=== PATIENT | male | born 1940 | race Caucasian/White ===

== ENCOUNTER 2017-05-07 21:31 | Inpatient (IN) | payer MEDICARE, OTHER ==
[~2017-05-07] VITALS: Ht 175.3 cm; Wt 85.3 kg
--- NOTE | 2017-05-07 21:45 | NUR ---
TO BED 6 A 76 YO MALE PATIENT BIBRA FROM [facility] HERE FOR "WBC 26.8; H&H 7.4 AND 26." UPON ARRIVAL TO ER, PATIENT IS ALERT AND RESPONSIVE. VSS. NAD NOTED. AFEBRILE. WITH TRACH TO MEC VENT; RT AT BEDSIDE. KEPT AIRWAY PATENT. COMFORT MEASURES RENDERED.
--- NOTE | 2017-05-07 22:45 | NUR ---
STARTED A SALINE LOCK ON THE LAC G18, BLOOD DRAWN AND CALLED LAB FOR RETAIL AND RESTAURANT ASSOCIATE.
[2017-05-07 22:47] VITALS: BP 154/75
--- NOTE | 2017-05-07 22:50 | NUR ---
PT REC'D TRACHED PORTEX 8 ON NOTED [facility] VENT SETTING GIVEN FROM TRANSPORT RT. PT IS AWAKE AND ALERT. NO RESP DISTRESS NOTED. AMBU BAG BEDSIDE. ALARMS ARE SET AND AUDIBLE. VENT PLUGGED INTO RED OUTLET. WILL CONTINUE TO MONITOR. Addendum: 05/07/17 at 2254 by HAN ALBERTS RT Amended: Links added.
[2017-05-07 23:31] LABS: BASOPHILS # (AUTO) 0.1 /CMM (0.0-0.2); BASOPHILS % (AUTO) 0.3 % (0.0-2.0); EOSINOPHILS # (AUTO) 0.3 /CMM (0.0-0.7); EOSINOPHILS % (AUTO) 0.9 % (0.0-6.0); HEMATOCRIT 25 % (39-51); HEMOGLOBIN 8.3 g/dL (13.5-17.5); LYMPHOCYTES # (AUTO) 1.6 /CMM (0.8-4.8); LYMPHOCYTES % (AUTO) 5.7 % (20.0-44.0); MEAN CORPUSCULAR HEMOGLOBIN 30 PG (26.0-33.0); MEAN CORPUSCULAR HGB CONC 33 g/dl (31.0-36.0); MEAN CORPUSCULAR VOLUME 92 fL (80-96); MONOCYTES # (AUTO) 2.3 /CMM (0.1-1.30); MONOCYTES % (AUTO) 7.9 % (2.0-12.0); NEUTROPHILS # (AUTO) 24.4 /CMM (1.8-8.9); NEUTROPHILS % (AUTO) 85.2 % (43.0-81.0); PLATELET COUNT (AUTO) 591 /CMM (150-450); RDW COEFFICIENT OF VARIATION 16.7 (11.5-15.0); RED BLOOD CELL COUNT(AUTO) 2.74 MIL/uL (4.5-6.0); WHITE BLOOD COUNT (AUTO) 28.6 K/uL (4.3-11.0)
[2017-05-07 23:41] LABS: CALCIUM, SERUM 8.4 mg/dL (8.5-10.1); CARBON DIOXIDE 34 mmol/L (21-32); CHLORIDE 104 mmol/L (98-107); GLUCOSE 98 mg/dL (74-106); POTASSIUM 3.8 mmol/L (3.5-5.1); SODIUM SERUM 142 mmol/L (136-145); UREA NITROGEN, BLOOD 35 mg/dL (7-18)
[2017-05-07 23:44] LABS: INR 1.08 (0.87-1.13)
[2017-05-07 23:49] LABS: TROPONIN I < 0.017 ng/mL (0.00-0.056)
[2017-05-07 23:55] LABS: ALANINE AMINOTRANSFERASE 38 U/L (12-78); ALBUMIN 1.7 g/dL (3.4-5.0); ALKALINE PHOSPHATASE 266 U/L (46-116); ASPARTATE AMINOTRANSFERASE 36 U/L (15-37); BILIRUBIN,DIRECT 0.1 mg/dL (0.0-0.2); BILIRUBIN,TOTAL 0.2 mg/dL (0.2-1.0); TOTAL PROTEIN, SERUM 7.1 g/dL (6.4-8.2)
[2017-05-08] MEDS ORDERED: PIPERACILLIN /TAZOBACTAM 3.375 G in IV D5W 50 ML IV ONE ×2
[2017-05-08] MEDS ORDERED: IV NS 0.9% 1,000 ML BAG IV ONE
[2017-05-08] MEDS ORDERED: VANCOMYCIN 1 GM in IV D5W 250 ML IV ONE ×2
[2017-05-08] MEDS ORDERED: VANCOMYCIN 1 GM VIAL ONE (00:03)
[2017-05-08] MEDS ORDERED: PIPERACILLIN /TAZOBACTAM 3.375 G VIAL IV ONE (00:03)
[2017-05-08 00:13] LABS: BAND % (MANUAL) 6 % (0.0-5.0); LYMPHOCYTES % (MANUAL) 4 % (16-48); MONOCYTES % (MANUAL) 8 % (0-11.0); NEUTROPHILS % (MANUAL) 82 (42-76)
[2017-05-08 01:16] VITALS: BP 148/78
--- NOTE | 2017-05-08 01:16 | NUR ---
JAKE FERNANDEZ (KEVAN) CELL #: [phone]
[2017-05-08 01:40] LABS: APPEARANCE,URINE CLEAR (CLEAR); BILIRUBIN,URINE NEGATIVE (NEGATIVE); BLOOD, URINE 2+ Ery/uL (NEGATIVE); KETONES,URINE NEGATIVE (NEGATIVE); LEUKOCYTE ESTERASE ,URINE TRACE (NEGATIVE); NITRITE, URINE NEGATIVE (NEGATIVE); PH,URINE 5.5 (5.0-8.0); PROTEIN,URINE 1+ mg/dl (NEGATIVE); UGLUCOSE NEGATIVE (NEGATIVE); UROBILINOGEN,URINE 0.2 EU/dL (0.2)
[2017-05-08 01:43] LABS: COLOR,URINE DARK YELLOW (YELLOW)
[2017-05-08 01:47] LABS: BACTERIA,URINE Moderate /HPF (None Seen); SQUAMOUS EPITHELIAL CELL,UR Few /HPF (None Seen); WBC,URINE 21-50 /HPF (0-3)
[2017-05-08 03:02] VITALS: BP 125/61
[2017-05-08] MEDS ORDERED: FAMO20TA8 GT (04:02)
[2017-05-08] MEDS ORDERED: MAGN2400 GT (04:02)
[2017-05-08] MEDS ORDERED: ATOR20TA GT (04:02)
[2017-05-08] MEDS ORDERED: ASPI-1169 GT (04:02)
[2017-05-08] MEDS ORDERED: ZINC220C8 GT (04:02)
[2017-05-08] MEDS ORDERED: NA P133E RC (04:02)
[2017-05-08] MEDS ORDERED: ACET-868 GT (04:02)
[2017-05-08] MEDS ORDERED: CEFT1VIA15 IV (04:02)
[2017-05-08] MEDS ORDERED: ALBU2.5V13 NEB ×2 (04:02)
[2017-05-08] MEDS ORDERED: BISA-79 PR (04:02)
[2017-05-08] MEDS ORDERED: IPRA0.2S49 NEB ×2 (04:02)
[2017-05-08] MEDS ORDERED: MULT-213 GT (04:02)
[2017-05-08] MEDS ORDERED: CRAN3875 GT (04:02)
[2017-05-08] MEDS ORDERED: ACET-73 GT (04:02)
[2017-05-08] MEDS ORDERED: CARV6.252 GT (04:02)
[2017-05-08] MEDS ORDERED: DOCU-141 GT (04:02)
[2017-05-08] MEDS ORDERED: ASCO-340 GT (04:02)
[2017-05-08] MEDS ORDERED: FERR325T23 GT (04:02)
[2017-05-08] MEDS ORDERED: VALS40TA4 GT (04:02)
--- NOTE | 2017-05-08 04:20 | NUR ---
CALLED FOR SARAY BED
[2017-05-08 05:34] VITALS: BP 124/75
--- NOTE | 2017-05-08 08:27 | NUR ---
Patient is resting comfortably in bed with eyes closed. Easily aroused. VSS
--- NOTE | 2017-05-08 08:44 | NUR ---
REPORT GIVEN TO AURELIANO SARGENT FOR [facility] SARAY 119-1.
[2017-05-08 08:45] VITALS: BP 115/58
--- NOTE | 2017-05-08 08:50 | NUR ---
RT RECD PT TRACHED WITH COOK 8.0 WITH FOLLOWING SETTINGS 600 RATE 14 PEEP 5 40% O2 SX THICK LARGE YELLOW SECRETIONS WILL TRANSFER TO ROOM 119 ALARMS ON AND AUDIBLE VENT PLUGGED IN RED OUTLET AMBU BAG AT BEDSIDE
--- NOTE | 2017-05-08 09:30 | NUR ---
RN NOTES RECEIVED PT FROM ER, VENT/TRACH DEPENDENT, A&0X2-3, ABLE TO MOUTH WORDS AND MAKE NEEDS KNOWN. SR ON THE TELE ERICA HR 84. LAC 18G IV SITE INTACT NO IVF. BED LOCKED AND IN LOWEST POSITION, CALL LIGHT WITHIN REACH, WILL CONT TO ERICA.
[2017-05-08 10:00] VITALS: BP 126/72
--- NOTE | 2017-05-08 10:00 | NUR ---
RN NOTES DR HARRISON RICO FOR ADMITTING ORDERS.
[2017-05-08] MEDS ORDERED: FEE PK DOSING 1 MIN EA MC ONE (11:34)
[2017-05-08 12:00] VITALS: BP 96/49
[2017-05-08] MEDS: IPRATROPIUM NEB FS 0.5 MG/2.5 ML AMPUL.NEB NEB SCH ×6 (12:00→20:10)
[2017-05-08] MEDS ORDERED: BISACODYL SUPP (10 MG) 10 MG/SUPP.RECT SUPP.RECT RC PRN (12:00)
[2017-05-08] MEDS ORDERED: VANCOMYCIN 1 GM in IV NS 0.9% 250 ML IV SCH (12:00)
[2017-05-08] MEDS ORDERED: ACETAMINOPHEN 650 MG/20.3 ML UDC PO PRN (12:00)
[2017-05-08] MEDS ORDERED: DEXTROSE 50%-WATER 50 ML DISP.SYRIN IV PRN (12:30)
[2017-05-08] MEDS ORDERED: GLYTROL 1,000 ML BAG GT PRN (12:30)
[2017-05-08] MEDS: ALBUTEROL FS 2.5 MG/0.5 ML VIAL.NEB NEB SCH ×3 (12:39→20:09)
[2017-05-08] MEDS: DOCUSATE SODIUM LIQ 100 MG/10 ML UDC GT SCH (13:40)
[2017-05-08] MEDS: IV 0.45% NS W/20 MEQ KCL 1L IV PRN ×2 (13:41)
[2017-05-08] MEDS: ZOSYN IVPB 3.375 G in IV D5W 50ml IV SCH ×3 (13:41→23:51)
[2017-05-08 15:05] LABS: ABG BASE EXCESS 4.7 mmol/L; ABG OXYGEN SATURATION 98.6 % (92.0-98.5); ABG PCO2 50.5 mmHg (35.0-45.0); ABG PH 7.395 (7.350-7.450); ABG PO2 159.6 mmHg (75.0-100.0); AaDO2 67.5 mmHg; COHb 0.3 % (0.5-1.5); MetHb 0.8 % (0.0-1.5); O2Hb 97.5 % (94.0-97.0); SITE, ABG Left Radial; VENT MODE, BG AC 14 600 40% +5
[2017-05-08] MEDS: FERROUS SULFATE (325 MG) 325 MG/TAB TABLET GT SCH (16:10)
[2017-05-08] MEDS: FAMOTIDINE (20 MG) 20 MG TABLET GT SCH (16:10)
[2017-05-08] MEDS: GLYTROL 1,000 ML BAG GT PRN (16:34)
[2017-05-08] MEDS: VALSARTAN 40 MG TABLET GT SCH (17:00)
[2017-05-08] MEDS: CARVEDILOL 6.25 MG TABLET GT SCH (17:00)
[2017-05-08] MEDS ORDERED: Medication Not On Formulary EA (Cran/Vitc/Mannose/Inulin/Brom (Uti-Stat Liquid) 30 ML) GT SCH (17:00)
[2017-05-08] MEDS: BLOOD SUGAR DIAGNOSTIC 1 EACH STRIP IN SCH ×2 (18:11→23:49)
--- NOTE | 2017-05-08 19:11 | NUR ---
RN NOTES PT REMAINED IN STABLE CONDITION THROUGHOUT THE SHIFT, NO SIGNIFICANT CHANGES NOTED. ALL NEEDS MET. WILL ENDORSE TO ONCOMING SHIFT.
--- NOTE | 2017-05-08 20:10 | NUR ---
RT NOTE PATIENT RECEIVED IN STABLE CONDITION ON CURRENT ORDERED VENT SETTINGS. NO SIGNS OF RESPIRATORY DISTRESS NOTED. TRACH IS PATENT AND SECURE. MECHANICAL VENT IS PLUGGED INTO RED OUTLET. ALARMS ARE SET AND AUDIBLE. AMBU BAG AND BACK UP TRACH AT PATIENT BEDSIDE. WILL CONTINUE TO MONITOR. Addendum: 05/08/17 at 2204 by TANVI HINDS RT Amended: Links added.
[2017-05-08] MEDS: INSULIN REGULAR, HUMAN 100 UNIT/ML 3 ML VIAL SQ PRN (23:50)
[2017-05-09] MEDS: IPRATROPIUM NEB FS 0.5 MG/2.5 ML AMPUL.NEB NEB SCH ×8 (01:30→20:17)
[2017-05-09] MEDS: ALBUTEROL FS 2.5 MG/0.5 ML VIAL.NEB NEB SCH ×4 (02:10→20:17)
[2017-05-09] MEDS: BLOOD SUGAR DIAGNOSTIC 1 EACH STRIP IN SCH ×4 (06:00→23:05)
[2017-05-09] MEDS: INSULIN REGULAR, HUMAN 100 UNIT/ML 3 ML VIAL SQ PRN ×3 (06:28→23:05)
[2017-05-09] MEDS: ZOSYN IVPB 3.375 G in IV D5W 50ml IV SCH (06:31)
--- NOTE | 2017-05-09 06:54 | NUR ---
RT NOTE DUPLICATE MED ORDER. ADMINISTERED 0.5MG ATROVENT
[2017-05-09 07:38] LABS: BASOPHILS # (AUTO) 0.1 /CMM (0.0-0.2); BASOPHILS % (AUTO) 0.2 % (0.0-2.0); EOSINOPHILS # (AUTO) 0.3 /CMM (0.0-0.7); EOSINOPHILS % (AUTO) 1.1 % (0.0-6.0); HEMATOCRIT 23 % (39-51); HEMOGLOBIN 7.7 g/dL (13.5-17.5); LYMPHOCYTES # (AUTO) 0.9 /CMM (0.8-4.8); LYMPHOCYTES % (AUTO) 3.1 % (20.0-44.0); MEAN CORPUSCULAR HEMOGLOBIN 30 PG (26.0-33.0); MEAN CORPUSCULAR HGB CONC 33 g/dl (31.0-36.0); MEAN CORPUSCULAR VOLUME 92 fL (80-96); MONOCYTES # (AUTO) 1.3 /CMM (0.1-1.30); MONOCYTES % (AUTO) 4.6 % (2.0-12.0); NEUTROPHILS # (AUTO) 26.4 /CMM (1.8-8.9); PLATELET COUNT (AUTO) 584 /CMM (150-450); RDW COEFFICIENT OF VARIATION 16.6 (11.5-15.0); RED BLOOD CELL COUNT(AUTO) 2.54 MIL/uL (4.5-6.0); WHITE BLOOD COUNT (AUTO) 29.1 K/uL (4.3-11.0)
[2017-05-09 08:00] VITALS: BP_SYST 108; BP_SYST 147; BP_DIAS 64; BP_DIAS 89
--- NOTE | 2017-05-09 08:00 | NUR ---
TD/RN AM SHIFT INITIAL NOTES RECEIVED PT ASLEEP IN BED, AROUSEABLE, PT A/O X 2, ABLE TO MOUTH WORDS, DENIES ANY SYMPTOMS. NO ACUTE CHANGE OF CONDITION NOTED. ON VENTILATOR RATES SET PRESCRIBED, SATURATING @ 98%, LUNG SOUNDS DIMINISHED, RESPIRATIONS EVEN AND UNLABORED. ON TELE WITH SINUS TACHY WITH FREQUENT PACs, HR 107. IV SITE WITH ON GOING INFUSION OF KCL 20MEQ IN 1/2NS @ 75CC/HR, NO S/S OF INFECTION. PT NOTED WITH GENERALIZED PITTING EDEMA. GT FEEDING ON GOING @ 20CC/HR, NO GASTRIC RESIDUAL, FLUSHED, PATENT. PT IS COMFORTABLE AT THIS TIME. SCHEDULED AM MEDS TO BE GIVEN. CL WITHIN REACHED AND SAFETY MAINTAINED. ON GOING MONITORING.
[2017-05-09] MEDS: FAMOTIDINE (20 MG) 20 MG TABLET GT SCH ×2 (08:51→17:47)
[2017-05-09] MEDS: ASCORBIC ACID 500 MG TABLET GT SCH (08:51)
[2017-05-09] MEDS: ASPIRIN 81 MG TAB.CHEW GT SCH (08:51)
[2017-05-09] MEDS: ATORVASTATIN 10 MG TABLET GT SCH (08:51)
[2017-05-09] MEDS: ZINC SULFATE 220 MG CAPSULE GT SCH (08:51)
[2017-05-09] MEDS: DOCUSATE SODIUM LIQ 100 MG/10 ML UDC GT SCH (08:51)
[2017-05-09] MEDS: MULTIVIT, IRON, MIN NO. 8, FA 1 TAB GT SCH (08:51)
[2017-05-09] MEDS: FERROUS SULFATE (325 MG) 325 MG/TAB TABLET GT SCH ×2 (08:51→17:47)
[2017-05-09] MEDS: CARVEDILOL 6.25 MG TABLET GT SCH ×2 (08:52→17:00)
[2017-05-09] MEDS: VALSARTAN 40 MG TABLET GT SCH ×2 (08:53→17:00)
[2017-05-09 09:35] LABS: BAND % (MANUAL) 4 % (0.0-5.0); LYMPHOCYTES % (MANUAL) 5 % (16-48); MONOCYTES % (MANUAL) 8 % (0-11.0); NEUTROPHILS % (MANUAL) 83 (42-76)
[2017-05-09] MEDS: methylPREDNISolone SOD SUCC 40 MG/ML VIAL IV SCH ×2 (10:24→13:21)
[2017-05-09] MEDS: IV 0.45% NS W/20 MEQ KCL 1L IV PRN ×2 (10:24)
[2017-05-09 10:36] LABS: CALCIUM, SERUM 7.3 mg/dL (8.5-10.1); CARBON DIOXIDE 30 mmol/L (21-32); CHLORIDE 104 mmol/L (98-107); GLUCOSE 101 mg/dL (74-106); POTASSIUM 3.2 mmol/L (3.5-5.1); SODIUM SERUM 141 mmol/L (136-145); UREA NITROGEN, BLOOD 25 mg/dL (7-18)
--- NOTE | 2017-05-09 11:35 | NUR ---
WOUND CARE CONSULT: PT PRESENTS WITH LIQUID GREENISH STOOL. PT ALSO NOTED TO HAVE 4+ PITTING EDEMA WHICH IS GENERALIZED. LEFT ANKLE UNSTAGEABLE ULCER NOTED WELL SACRAL AND LEFT BUTTOCK STAGE 3 ULCERS, ALL PRESENT ON ADMISSION. PT HAS SCARS TO LEFT HIP AREA AND DRY ABRASION TO LEFT LATERAL KNEE WITH EDEMA. PT IS INCONTINENT OF STOOL AND URINE. SCROTAL EDEMA NOTED TO BE PROFOUND. RECOMMEND SURGICAL CONSULT. PT IS COMBATIVE AT TIMES. ALL SKIN PROTECTION AND WOUND RECOMMENDATIONS DISCUSSED WITH NURSING STAFF. CURRENT CALDERON SCORE IS 11. FIRST STEP MATTRESS ORDERED. WILL SEE PRN. IN AGREEMENT WITH PLAN OF CARE. Addendum: 05/09/17 at 1138 by ALCIRA PAL WNDNU Amended: Links added.
[2017-05-09 12:00] VITALS: BP 98/52
[2017-05-09] MEDS ORDERED: HYDROGEL DRESSING 90 GM TUBE TP PRN (12:00)
[2017-05-09] MEDS ORDERED: Z GUARD REMEDY 2 OZ OINT TP PRN (12:00)
[2017-05-09] MEDS: Z GUARD REMEDY 2 OZ OINT TP SCH (12:58)
[2017-05-09] MEDS: MEROPENEM 1 G in IV NS 0.9% 100 ML IV SCH ×2 (12:58→17:41)
[2017-05-09] MEDS: HYDROGEL DRESSING 90 GM TUBE TP SCH (12:58)
[2017-05-09] MEDS: CADEXOMER IODINE 40 GM TUBE TP SCH (12:58)
[2017-05-09 16:00] VITALS: BP 97/40
--- NOTE | 2017-05-09 19:16 | NUR ---
RT PT AWAKE AND ALERT. VENT PLUGGED IN RED OUTLET ALARMS ON AND AUDIBLE. BAG AT [facility] TRACH INTACH AND SECURED TX GIVEN NO ADVERSE REACTION NOTED ATT SX MODERATE THICK PALE YELLOW SECRETIONS
--- NOTE | 2017-05-09 19:45 | NUR ---
TELE1/RN AM SHIFT END NOTES ALL NEEDS MET. NO ACUTE CHANGE OF CONDITION NOTED DURING THE SHIFT. PT ENDORSED TO PM NURSE TO CONTINUE CARE. CL WITHIN REACHED AND SAFETY MAINTAINED.
[2017-05-09 20:00] VITALS: BP 102/52
--- NOTE | 2017-05-09 20:23 | NUR ---
RCVD PT ON VENT WITH NOTED SETTINGS. PT ALERT AND AWAKE, BREATHING TX GIVEN PER MD'S ORDER, NO ADVERSE REACTION NOTED. SUCTIONED MODERATE AMOUNT OF PALE YELLOW THICK SECRETIONS. VENT PLUGGED INTO RED OUTLET, VENT ALARM WORKING AND AUDIBLE. AMBU BAG AT BEDSIDE, WILL CONTINUE TO MONITOR THE PT.
--- NOTE | 2017-05-09 20:23 | NUR ---
RN NOTES RECEIVED PATIENT AWAKE IN BED WITH NO DISTRESS NOTED, BREATHING EVEN AND UNLABORED. VENT SETTING WELL TOLERATED. NO PHYSICAL MANIFESTATION OF PAIN OR DISCOMFORT. HOB ELEVATED. FEEDING WELL TOLERATED. GT IN PLACE AND INTACT. RECTAL TUBE WITH BM, LIQUID SOFT BROWN COLOR. CONDOM CATHETER IN PLACE. VITAL SIGNS WNL. WILL CONTINUE TO MONITOR
[2017-05-10] VITALS: BP 139/61
[2017-05-10] MEDS: IPRATROPIUM NEB FS 0.5 MG/2.5 ML AMPUL.NEB NEB SCH ×7 (01:30→19:55)
[2017-05-10] MEDS: MEROPENEM 1 G in IV NS 0.9% 100 ML IV SCH ×3 (01:37→17:10)
[2017-05-10] MEDS: IV 0.45% NS W/20 MEQ KCL 1L IV PRN ×4 (01:37→21:59)
[2017-05-10] MEDS: ALBUTEROL FS 2.5 MG/0.5 ML VIAL.NEB NEB SCH ×4 (01:56→19:55)
[2017-05-10 04:00] VITALS: BP 107/70
[2017-05-10] MEDS: BLOOD SUGAR DIAGNOSTIC 1 EACH STRIP IN SCH ×4 (06:00→23:38)
[2017-05-10] MEDS: INSULIN REGULAR, HUMAN 100 UNIT/ML 3 ML VIAL SQ PRN ×4 (06:01→23:40)
--- NOTE | 2017-05-10 06:34 | NUR ---
RN NOTES PATIENT WAS TRANSFERRED AT ROOM 107 FOR CONTACT ISOLATION MRSA NARES. NO DISTRESS NOTED. BREATHING EVEN AND UNLABORED. NO COMPLAINT OF PAIN OR DISCOMFORT. VITAL SIGNS WNL. NO SIGNIFICANT CHANGE OF CONDITION. KEPT CLEAN AND DRY.
--- NOTE | 2017-05-10 07:45 | NUR ---
INTRANET DEVELOPER OPENING NOTE PATIENT IS ALERT x2, ABLE TO MOUTH WORDS. NO FACIAL GRIMACING NOTED FOR PAIN. NO SOB OR DISTRESS NOTED. CALL LIGHT WITHIN REACH. SAFETY MEASURES IMPLEMENTED. IV ON RIGHT HAND INTACT AND PATENT WITH IV FLUIDS RUNNING AT 75 ML/HR TOLERATING WELL. HAS TRACH PRESENT WITH SETTINGS. TELE MONITOR-ST 101. BLOOD SUGARS TO BE MONITORED THROUGHOUT SHIFT. WOUND TREATMENT TO BE DONE THROUGHOUT SHIFT. POSSIBLE WOUND DEBRIDEMENT TO BE DONE TODAY. ON CONTACT ISOLATION FOR MRSA NARES, ISOLATION PRECAUTIONS IN PLACE. WILL CONTINUE TO MONITOR THROUGHOUT SHIFT.
[2017-05-10 08:00] VITALS: BP 127/61
[2017-05-10 08:39] LABS: HEMATOCRIT 22 % (39-51); HEMOGLOBIN 7.1 g/dL (13.5-17.5); MEAN CORPUSCULAR HEMOGLOBIN 30 PG (26.0-33.0); MEAN CORPUSCULAR HGB CONC 33 g/dl (31.0-36.0); MEAN CORPUSCULAR VOLUME 91 fL (80-96); PLATELET COUNT (AUTO) 542 /CMM (150-450); RDW COEFFICIENT OF VARIATION 17.4 (11.5-15.0); RED BLOOD CELL COUNT(AUTO) 2.38 MIL/uL (4.5-6.0)
[2017-05-10 08:40] LABS: LYMPHOCYTES # (AUTO) 0.6 /CMM (0.8-4.8); MONOCYTES # (AUTO) 0.9 /CMM (0.1-1.30); NEUTROPHILS # (AUTO) 29.9 /CMM (1.8-8.9)
[2017-05-10 08:46] LABS: WHITE BLOOD COUNT (AUTO) 31.4 K/uL (4.3-11.0)
[2017-05-10] MEDS: methylPREDNISolone SOD SUCC 40 MG/ML VIAL IV SCH ×2 (08:52→17:11)
[2017-05-10] MEDS: VALSARTAN 40 MG TABLET GT SCH ×2 (08:53→17:12)
[2017-05-10] MEDS: ASPIRIN 81 MG TAB.CHEW GT SCH (08:53)
[2017-05-10] MEDS: ZINC SULFATE 220 MG CAPSULE GT SCH (08:53)
[2017-05-10] MEDS: CARVEDILOL 6.25 MG TABLET GT SCH ×2 (08:53→17:12)
[2017-05-10] MEDS: FAMOTIDINE (20 MG) 20 MG TABLET GT SCH ×2 (08:53→17:11)
[2017-05-10] MEDS: FERROUS SULFATE (325 MG) 325 MG/TAB TABLET GT SCH ×2 (08:53→17:11)
[2017-05-10] MEDS: ATORVASTATIN 10 MG TABLET GT SCH (08:53)
[2017-05-10] MEDS: MULTIVIT, IRON, MIN NO. 8, FA 1 TAB GT SCH (08:53)
[2017-05-10] MEDS: ASCORBIC ACID 500 MG TABLET GT SCH (08:53)
[2017-05-10] MEDS: DOCUSATE SODIUM LIQ 100 MG/10 ML UDC GT SCH (08:54)
[2017-05-10] MEDS: Z GUARD REMEDY 2 OZ OINT TP SCH (08:54)
[2017-05-10 08:59] LABS: CALCIUM, SERUM 7.3 mg/dL (8.5-10.1); CARBON DIOXIDE 30 mmol/L (21-32); CHLORIDE 103 mmol/L (98-107); GLUCOSE 170 mg/dL (74-106); POTASSIUM 3.2 mmol/L (3.5-5.1); SODIUM SERUM 139 mmol/L (136-145); UREA NITROGEN, BLOOD 27 mg/dL (7-18)
[2017-05-10] MEDS: HYDROGEL DRESSING 90 GM TUBE TP SCH (09:09)
[2017-05-10] MEDS: CADEXOMER IODINE 40 GM TUBE TP SCH (09:10)
--- NOTE | 2017-05-10 10:30 | NUR ---
SUPERVISOR PLASMA NOTE PATIENT ON SOFT BILATERAL RESTRAINTS AT THIS TIME. RECEIVED ORDER FROM MD, ORDERS NOTED AND CARRIED OUT. PATIENT KEEPS REMOVING TUBING FROM TRACH/VENT. ATTEMPTING TO REMOVE IV LINES. WILL MONITOR THROUGHOUT SHIFT
[2017-05-10 12:00] VITALS: BP 124/68
[2017-05-10 12:38] LABS: BAND % (MANUAL) 1 % (0.0-5.0); LYMPHOCYTES % (MANUAL) 2 % (16-48); MONOCYTES % (MANUAL) 2 % (0-11.0); NEUTROPHILS % (MANUAL) 95 (42-76)
--- NOTE | 2017-05-10 14:58 | NUR ---
SUPERVISOR PYROTECHNIC LOADING NOTE PATIENT REFUSING WOUND TREATMENT DRESSINGS TO BE CHANGED. ASKED PATIENT x3, PATIENT REFUSES EACH TIME ABLE TO MOUTH THE WORDS "NO". WILL ENDORSE TO EXPERIMENTAL FLIGHT TEST MECHANIC NURSE
[2017-05-10] MEDS ORDERED: POTASSIUM CHLORIDE 20 MEQ POWDER PACKET GT SCH (15:00)
[2017-05-10] MEDS ORDERED: POTASSIUM CHLORIDE 20 MEQ POWDER PACKET GT ONE (16:00)
[2017-05-10 16:31] VITALS: BP 140/68
[2017-05-10] MEDS: GLYTROL 1,000 ML BAG GT PRN (17:27)
--- NOTE | 2017-05-10 18:36 | NUR ---
PALLET SORTER CLOSING NOTE PATIENT IS ALERT AND ORIENTED x2, ABLE TO MOUTH WORDS. NO FACIAL GRIMACING NOTED FOR PAIN. NO SOB OR DISTRESS NOTED. CALL LIGHT WITHIN REACH AT ALL TIMES. SAFETY MEASURES IMPLEMENTED. ALL DUE MEDICATIONS GIVEN ORDERED. ALL NURSING CARE NEEDS ATTENDED TO. G-TUBE PATENT FLUSHES WELL WITH TUBE FEEDING RUNNING AT 25 ML/HR TOLERATING WELL NO RESIDUAL NOTED. HAS RECTAL TUBE IN PLACE, DRAINING WELL. BLOOD SUGARS MONITORED AND INSULIN GIVEN NEEDED. IV INTACT AND PATENT NO REDNESS OR SWELLING NOTED WITH IV FLUIDS RUNNING AT THIS TIME AT 75 ML/HR. ON MECHANICAL VENT WITH SETTINGS. SUCTIONED NEEDED. REFUSED WOUND TREATMENT x3. ALL ELECTROLYTES REPLACED. WILL ENDORSE TO BALLISTIC TECHNICIAN NURSE FOR SUMMER Addendum: 05/10/17 at 1841 by OLVIN CHATTERJEE RN GONZALEZ CATHETER IN PLACE, NO SEDIMENT NOTED
[2017-05-10 20:00] VITALS: BP 170/63
--- NOTE | 2017-05-10 20:00 | NUR ---
RN INITIAL NOTE PATIENT IS ALERT AND ORIENTED x2, ABLE TO MOUTH WORDS. NO FACIAL GRIMACING NOTED FOR PAIN. NO SOB OR DISTRESS NOTED. CALL LIGHT WITHIN REACH AT ALL TIMES. SAFETY MEASURES IMPLEMENTED. G-TUBE PATENT FLUSHES WELL WITH TUBE FEEDING RUNNING AT 25 ML/HR TOLERATING WELL NO RESIDUAL NOTED. HAS RECTAL TUBE IN PLACE, DRAINING WELL. IV INTACT AND PATENT NO REDNESS OR SWELLING NOTED WITH IV FLUIDS RUNNING AT THIS TIME AT 75 ML/HR. ON MECHANICAL VENT WITH SETTINGS. PT IS IN SOFT WRIST RESTRAINT X2 FOR SAFETY WILL CONT TO MONITOR.
[2017-05-10] MEDS: MUPIROCIN OINT 2% 22 GM TUBE SCH (21:19)
[2017-05-11] VITALS: BP 145/70
[2017-05-11] MEDS: IPRATROPIUM NEB FS 0.5 MG/2.5 ML AMPUL.NEB NEB SCH ×4 (01:27→19:28)
[2017-05-11] MEDS: ALBUTEROL FS 2.5 MG/0.5 ML VIAL.NEB NEB SCH ×4 (01:27→19:28)
[2017-05-11] MEDS: MEROPENEM 1 G in IV NS 0.9% 100 ML IV SCH ×2 (02:32→09:20)
[2017-05-11 04:00] VITALS: BP 132/58
[2017-05-11] MEDS: BLOOD SUGAR DIAGNOSTIC 1 EACH STRIP IN SCH ×3 (05:17→17:57)
[2017-05-11] MEDS: INSULIN REGULAR, HUMAN 100 UNIT/ML 3 ML VIAL SQ PRN (05:19)
--- NOTE | 2017-05-11 06:43 | NUR ---
RN INITIAL NOTE PATIENT IS ALERT AND ORIENTED x2, ABLE TO MOUTH WORDS. NO FACIAL GRIMACING NOTED FOR PAIN. NO SOB OR DISTRESS NOTED. CALL LIGHT WITHIN REACH AT ALL TIMES. SAFETY MEASURES IMPLEMENTED. G-TUBE PATENT FLUSHES WELL WITH TUBE FEEDING RUNNING AT 20 ML/HR TOLERATING WELL NO RESIDUAL NOTED. HAS RECTAL TUBE IN PLACE, DRAINING WELL. IV INTACT AND PATENT NO REDNESS OR SWELLING NOTED WITH IV FLUIDS RUNNING AT THIS TIME AT 75 ML/HR. ON MECHANICAL VENT WITH SETTINGS. PT IS IN SOFT WRIST RESTRAINT X2 FOR SAFETY WILL ENDORSE TO AM RN.
--- NOTE | 2017-05-11 07:30 | NUR ---
WEATHERIZATION INSTALLER INITIAL NOTES RECEIVED PATIENT IN BED, AOX1-2, ABLE TO VERBALLY COMMUNICATE AND MAKE NEEDS KNOWN, REORIENTED, ON VENT SETTINGS ORDERED, TOLERATING WELL, ON TELE MONITOR SR, RECTAL TUBE FOR LOOSE STOOL, GTUBE FEEDINGS GLYTROL @20 ML/HR, NO RESIDUAL NOTED, TOLERATING WELL. IV NOT PATENT AT THIS TIME WILL INSERT NEW ONE, BED IN LOW AND LOCKED POSITION CALL LIGHT WITHIN REACH WILL CONTINUE TO MONITOR.
[2017-05-11 07:31] LABS: HEMATOCRIT 23 % (39-51); HEMOGLOBIN 7.4 g/dL (13.5-17.5); LYMPHOCYTES # (AUTO) 0.8 /CMM (0.8-4.8); LYMPHOCYTES % (AUTO) 3.3 % (20.0-44.0); MEAN CORPUSCULAR HEMOGLOBIN 30 PG (26.0-33.0); MEAN CORPUSCULAR HGB CONC 32 g/dl (31.0-36.0); MEAN CORPUSCULAR VOLUME 92 fL (80-96); MONOCYTES # (AUTO) 1.7 /CMM (0.1-1.30); MONOCYTES % (AUTO) 6.7 % (2.0-12.0); NEUTROPHILS # (AUTO) 22.3 /CMM (1.8-8.9); PLATELET COUNT (AUTO) 545 /CMM (150-450); RDW COEFFICIENT OF VARIATION 17.4 (11.5-15.0); WHITE BLOOD COUNT (AUTO) 24.8 K/uL (4.3-11.0)
[2017-05-11 07:47] LABS: CALCIUM, SERUM 7.4 mg/dL (8.5-10.1); CARBON DIOXIDE 32 mmol/L (21-32); CHLORIDE 107 mmol/L (98-107); CREATININE 0.9 mg/dL (0.6-1.3); GLUCOSE 115 mg/dL (74-106); POTASSIUM 3.7 mmol/L (3.5-5.1); SODIUM SERUM 142 mmol/L (136-145); UREA NITROGEN, BLOOD 27 mg/dL (7-18)
[2017-05-11 08:00] VITALS: BP 127/68
[2017-05-11] MEDS: DOCUSATE SODIUM LIQ 100 MG/10 ML UDC GT SCH (09:00)
[2017-05-11] MEDS: ASPIRIN 81 MG TAB.CHEW GT SCH (09:19)
[2017-05-11] MEDS: FAMOTIDINE (20 MG) 20 MG TABLET GT SCH ×2 (09:20→16:45)
[2017-05-11] MEDS: ASCORBIC ACID 500 MG TABLET GT SCH (09:20)
[2017-05-11] MEDS: ZINC SULFATE 220 MG CAPSULE GT SCH (09:20)
[2017-05-11] MEDS: MULTIVIT, IRON, MIN NO. 8, FA 1 TAB GT SCH (09:20)
[2017-05-11] MEDS: FERROUS SULFATE (325 MG) 325 MG/TAB TABLET GT SCH ×2 (09:20→16:45)
[2017-05-11] MEDS: ATORVASTATIN 10 MG TABLET GT SCH (09:20)
[2017-05-11] MEDS: methylPREDNISolone SOD SUCC 40 MG/ML VIAL IV SCH (09:21)
[2017-05-11] MEDS: CARVEDILOL 6.25 MG TABLET GT SCH ×2 (09:22→16:46)
[2017-05-11] MEDS: VALSARTAN 40 MG TABLET GT SCH ×2 (09:22→16:46)
[2017-05-11] MEDS: HYDROGEL DRESSING 90 GM TUBE TP SCH (09:23)
[2017-05-11] MEDS: CADEXOMER IODINE 40 GM TUBE TP SCH (09:23)
[2017-05-11] MEDS: Z GUARD REMEDY 2 OZ OINT TP SCH (09:23)
[2017-05-11] MEDS: MUPIROCIN OINT 2% 22 GM TUBE SCH ×2 (09:24→22:12)
[2017-05-11 12:00] VITALS: BP 136/70
[2017-05-11] MEDS: LEVOFLOXACIN 500 MG /D5W 100ML 500 MG in PREMIX 1 EA IV SCH (13:48)
--- NOTE | 2017-05-11 13:57 | NUR ---
CARD HAND NOTES LEFT MESSAGE TO FAMILY FOR CONSENT FOR BLOOD TRANSFUSION.
[2017-05-11 16:00] VITALS: BP_SYST 127; BP_DIAS 56; BP_DIAS 65
--- NOTE | 2017-05-11 18:35 | NUR ---
WOUND CARE PHYSICIAN NOTES PATIENT RESTING IN BED, NO SIGNS OF DISTRESS, ALL NEEDS MET, TURNED AND REPOSITIONED, PATIENT FAMILY HAS NOT CALLED BACK YET FOR CONSENT, WILL ENDORSE TO ELEVATOR ADJUSTER FOR CONTINUITY OF CARE.
[2017-05-11 20:00] VITALS: BP 158/85
[2017-05-12] VITALS (10 sets, daily range): BP systolic 126–184; BP diastolic 65–90
[2017-05-12] MEDS: BLOOD SUGAR DIAGNOSTIC 1 EACH STRIP IN SCH ×3 (00:19→12:44)
[2017-05-12] MEDS: INSULIN REGULAR, HUMAN 100 UNIT/ML 3 ML VIAL SQ PRN ×2 (00:20→05:34)
[2017-05-12] MEDS: IPRATROPIUM NEB FS 0.5 MG/2.5 ML AMPUL.NEB NEB SCH ×3 (01:18→13:03)
[2017-05-12] MEDS: ALBUTEROL FS 2.5 MG/0.5 ML VIAL.NEB NEB SCH ×3 (01:18→13:03)
[2017-05-12] MEDS: IV 0.45% NS W/20 MEQ KCL 1L IV PRN ×2 (03:44)
[2017-05-12] MEDS: GLYTROL 1,000 ML BAG GT PRN (06:28)
--- NOTE | 2017-05-12 07:30 | NUR ---
rn telemetry initial notes Received patient in bed, awake, head of bed elevated, on mechanical vent and tolerated well, 02 sat of 100%, IV intact and patent with blood transfusing well. On tele monitor SR heart rate of 80. No facial grimace noted. GT feeding infusing well no residual noted. Kept patient clean and comfortable in bed, call light with in patient reach, will continue to monitor accordingly. Bilateral soft restraint and circulation checked.
[2017-05-12] MEDS: VALSARTAN 40 MG TABLET GT SCH ×2 (08:52→17:07)
[2017-05-12] MEDS: DOCUSATE SODIUM LIQ 100 MG/10 ML UDC GT SCH (08:52)
[2017-05-12] MEDS: ATORVASTATIN 10 MG TABLET GT SCH (08:53)
[2017-05-12] MEDS: CARVEDILOL 6.25 MG TABLET GT SCH ×2 (08:53→17:06)
[2017-05-12] MEDS: ZINC SULFATE 220 MG CAPSULE GT SCH (08:53)
[2017-05-12] MEDS: FERROUS SULFATE (325 MG) 325 MG/TAB TABLET GT SCH ×2 (08:53→17:06)
[2017-05-12] MEDS: FAMOTIDINE (20 MG) 20 MG TABLET GT SCH ×2 (08:53→17:06)
[2017-05-12] MEDS: ASCORBIC ACID 500 MG TABLET GT SCH (08:53)
[2017-05-12] MEDS: ASPIRIN 81 MG TAB.CHEW GT SCH (08:53)
[2017-05-12] MEDS: MULTIVIT, IRON, MIN NO. 8, FA 1 TAB GT SCH (08:53)
[2017-05-12] MEDS: HYDROGEL DRESSING 90 GM TUBE TP SCH (08:54)
[2017-05-12] MEDS: CADEXOMER IODINE 40 GM TUBE TP SCH (08:55)
[2017-05-12] MEDS: Z GUARD REMEDY 2 OZ OINT TP SCH (08:55)
[2017-05-12] MEDS ORDERED: methylPREDNISolone SOD SUCC 40 MG/ML VIAL IV SCH (09:00)
[2017-05-12] MEDS ORDERED: METH4TAB3 PO (09:53)
[2017-05-12] MEDS ORDERED: LEVO500T75 PO (09:53)
[2017-05-12] MEDS ORDERED: MUPI22OI7 (10:03)
[2017-05-12] MEDS: LEVOFLOXACIN 500 MG /D5W 100ML 500 MG in PREMIX 1 EA IV SCH (12:44)
--- NOTE | 2017-05-12 12:44 | NUR ---
MILK DRIVER NOTES Blood sugar checked 118 no coverage given. Will continue to monitor accordingly.
[2017-05-12 15:55] LABS: BASOPHILS % (AUTO) 0.1 % (0.0-2.0); EOSINOPHILS % (AUTO) 0.4 % (0.0-6.0); HEMATOCRIT 24 % (39-51); HEMOGLOBIN 8.1 g/dL (13.5-17.5); LYMPHOCYTES # (AUTO) 0.7 /CMM (0.8-4.8); LYMPHOCYTES % (AUTO) 5.4 % (20.0-44.0); MEAN CORPUSCULAR HEMOGLOBIN 30 PG (26.0-33.0); MEAN CORPUSCULAR HGB CONC 33 g/dl (31.0-36.0); MEAN CORPUSCULAR VOLUME 90 fL (80-96); MONOCYTES # (AUTO) 0.1 /CMM (0.1-1.30); MONOCYTES % (AUTO) 0.6 % (2.0-12.0); NEUTROPHILS # (AUTO) 12.3 /CMM (1.8-8.9); NEUTROPHILS % (AUTO) 93.5 % (43.0-81.0); PLATELET COUNT (AUTO) 463 /CMM (150-450); RDW COEFFICIENT OF VARIATION 17.4 (11.5-15.0); RED BLOOD CELL COUNT(AUTO) 2.72 MIL/uL (4.5-6.0); WHITE BLOOD COUNT (AUTO) 13.2 K/uL (4.3-11.0)
[2017-05-12 16:05] LABS: CALCIUM, SERUM 7.6 mg/dL (8.5-10.1); CARBON DIOXIDE 28 mmol/L (21-32); CHLORIDE 106 mmol/L (98-107); CREATININE 0.8 mg/dL (0.6-1.3); GLUCOSE 129 mg/dL (74-106); POTASSIUM 4.2 mmol/L (3.5-5.1); SODIUM SERUM 141 mmol/L (136-145); UREA NITROGEN, BLOOD 23 mg/dL (7-18)
[2017-05-12] MEDS: MUPIROCIN OINT 2% 22 GM TUBE SCH (17:06)
--- NOTE | 2017-05-12 18:40 | NUR ---
telephone interviewermanager of internal notes Discharge instructions given to Maddy (next of kin) and able to understand instructions. Discharge paper and belonging list signed by 2 nurses due to patient unable to sign. Discontinued IV and pressured applied, no bleeding noted. GT intact and rectal rube. Called [facility] and report given to Edith. Vital signs checked and recorded. Kept clean and comfortable. Ambulance came and loaded the patient to the [facility] accompanied by RT. No complaint of pain or discomfort noted, nor chest pain. Patient is alert and oriented x 2 and mouthing words. Pictures taken by overnight cashier RN and filed in the patient's chart. Patient left the hospital in stable condition. MD and charge nurse made aware.
== END 2017-05-12 18:34 | DRG 689 ==
LOC: ER 21:34 → TELE-TD 05-08 08:37 → TELE1 05-09 10:37
PROVIDERS: ADMIT Internal Medicine; ATTEND Internal Medicine
PROC: 5A1955Z Respiratory Ventilation, Greater than 96 Consecutive Hours (ICD-10-PCS; principal; 2017-05-07)
PROC: 30233N1 Transfusion of Nonautologous Red Blood Cells into Peripheral Vein, Percutaneous Approach (ICD-10-PCS; 2017-05-12)
DX: N39.0 Urinary tract infection, site not specified (principal); G93.41 Metabolic encephalopathy; L89.319 Pressure ulcer of right buttock, unspecified stage; Z99.11 Dependence on respirator [ventilator] status; J44.9 Chronic obstructive pulmonary disease, unspecified; J96.12 Chronic respiratory failure with hypercapnia; L89.153 Pressure ulcer of sacral region, stage 3; L89.323 Pressure ulcer of left buttock, stage 3; Z93.0 Tracheostomy status; R13.10 Dysphagia, unspecified; D64.9 Anemia, unspecified; E11.9 Type 2 diabetes mellitus without complications; Z93.1 Gastrostomy status; E78.5 Hyperlipidemia, unspecified; I10 Essential (primary) hypertension; I25.10 Atherosclerotic heart disease of native coronary artery without angina pectoris; I25.2 Old myocardial infarction; K21.9 Gastro-esophageal reflux disease without esophagitis; Z87.891 Personal history of nicotine dependence; E88.09 Other disorders of plasma-protein metabolism, not elsewhere classified; T38.0X5A Adverse effect of glucocorticoids and synthetic analogues, initial encounter; Y92.89 Other specified places as the place of occurrence of the external cause
CPT/HCPCS: 31720; 36415; 36600; 71045-TC; 80048-TC; 80076-TC; 80202-TC; 81000-TC; 82803-TC; 82962-TC; 83605-TC; 84484-TC; 85025-TC; 85730-TC; 86850-TC; 86921-TC; 87040-TC; 87081-TC; 87086-TC; 94003-TC; 94760-TC; 94762-TC; 99082-TC; A4216; A4349; A4606; A4623; A6248; A6253; A6402; A6403; J1815; J1956; J2185; J2543; J2920; J3370; J3480; J3490; J7030; J7050; J7060; P9016-BL; Z7610

== ENCOUNTER 2017-05-30 16:51 | Inpatient (IN) | payer OTHER ==
[~2017-05-30] VITALS: Ht 170.2 cm; Wt 69.9 kg
[~2017-05-30 16:51] MED LIST: ACET-868 GT; ALBU2.5V13 NEB; ASCO-340 GT; ASPI-1169 GT; ATOR20TA GT; BISA-79 PR; CARV6.252 GT; CRAN3875 GT; DOCU-141 GT; FAMO20TA8 GT; FERR325T23 GT; IPRA0.2S49 NEB; LEVO500T75 PO; METH4TAB3 PO; MULT-213 GT; MUPI22OI7; VALS40TA4 GT; ZINC220C8 GT
[2017-05-30 17:08] VITALS: BP 134/79
[2017-05-30] MEDS ORDERED: IV NS 0.9% 1,000 ML BAG IV ONE (17:30)
[2017-05-30] MEDS ORDERED: AMIN30LI4 GT (17:53)
[2017-05-30] MEDS ORDERED: CALC-261 GT (17:53)
[2017-05-30] MEDS ORDERED: SENN-18 GT (17:53)
[2017-05-30] MEDS ORDERED: NA P133E RC (17:53)
[2017-05-30] MEDS ORDERED: ACET-868 GT (17:53)
[2017-05-30] MEDS ORDERED: INSU100V3 SQ (17:53)
[2017-05-30] MEDS ORDERED: MULT-447 GT (17:53)
[2017-05-30] MEDS ORDERED: IPRA0.2S9 IH ×2 (17:53)
[2017-05-30] MEDS ORDERED: ACET-2605 GT (17:53)
[2017-05-30] MEDS ORDERED: BLOO-697 IN (17:53)
[2017-05-30] MEDS ORDERED: DOCU50LI GT (17:53)
[2017-05-30] MEDS ORDERED: MAGN400O6 GT (17:53)
[2017-05-30] MEDS ORDERED: ALBU2.5V13 IH (17:53)
[2017-05-30] MEDS ORDERED: METH4TAB17 GT (17:53)
[2017-05-30] MEDS ORDERED: NUT.237L30 GT (17:53)
[2017-05-30] MEDS ORDERED: SACC250C GT (17:54)
[2017-05-30 17:55] LABS: BASOPHILS # (AUTO) 0.6 /CMM (0.0-0.2); BASOPHILS % (AUTO) 2.9 % (0.0-2.0); EOSINOPHILS # (AUTO) 0.5 /CMM (0.0-0.7); EOSINOPHILS % (AUTO) 2.5 % (0.0-6.0); HEMATOCRIT 24 % (39-51); HEMOGLOBIN 7.9 g/dL (13.5-17.5); LYMPHOCYTES # (AUTO) 2.3 /CMM (0.8-4.8); LYMPHOCYTES % (AUTO) 11.5 % (20.0-44.0); MEAN CORPUSCULAR HEMOGLOBIN 30 PG (26.0-33.0); MEAN CORPUSCULAR HGB CONC 34 g/dl (31.0-36.0); MEAN CORPUSCULAR VOLUME 88 fL (80-96); MONOCYTES # (AUTO) 2.2 /CMM (0.1-1.30); NEUTROPHILS # (AUTO) 14.5 /CMM (1.8-8.9); NEUTROPHILS % (AUTO) 72.1 % (43.0-81.0); PLATELET COUNT (AUTO) 336 /CMM (150-450); RDW COEFFICIENT OF VARIATION 16.3 (11.5-15.0); RED BLOOD CELL COUNT(AUTO) 2.68 MIL/uL (4.5-6.0); WHITE BLOOD COUNT (AUTO) 20.1 K/uL (4.3-11.0)
[2017-05-30 18:06] LABS: CALCIUM, SERUM 8.9 mg/dL (8.5-10.1); CARBON DIOXIDE 39 mmol/L (21-32); CHLORIDE 93 mmol/L (98-107); CREATININE 0.7 mg/dL (0.6-1.3); GLUCOSE 99 mg/dL (74-106); INR 1.06 (0.85-1.15); POTASSIUM 4.7 mmol/L (3.5-5.1); SODIUM SERUM 130 mmol/L (136-145); UREA NITROGEN, BLOOD 24 mg/dL (7-18)
[2017-05-30 18:11] LABS: TROPONIN I < 0.017 ng/mL (0.00-0.056)
[2017-05-30 18:20] LABS: ALANINE AMINOTRANSFERASE 20 U/L (12-78); ALBUMIN 1.9 g/dL (3.4-5.0); ALKALINE PHOSPHATASE 200 U/L (46-116); ASPARTATE AMINOTRANSFERASE 25 U/L (15-37); BILIRUBIN,DIRECT 0.1 mg/dL (0.0-0.2); BILIRUBIN,TOTAL 0.3 mg/dL (0.2-1.0); TOTAL PROTEIN, SERUM 7.1 g/dL (6.4-8.2)
[2017-05-30] MEDS ORDERED: PIPERACILLIN /TAZOBACTAM 3.375 G in IV D5W 50 ML IV ONE (19:00)
[2017-05-30] MEDS ORDERED: PANTOPRAZOLE 40 MG VIAL IV ONE (19:00)
[2017-05-30] MEDS ORDERED: VANCOMYCIN 1 GM in IV D5W 250 ML IV ONE (19:00)
[2017-05-30] MEDS ORDERED: MEROPENEM 1,000 MG in IV NS 0.9% 100 ML IV ONE (19:30)
[2017-05-30 19:41] VITALS: BP 162/107
[2017-05-30 19:47] LABS: APPEARANCE,URINE SL CLOUDY (CLEAR); BILIRUBIN,URINE NEGATIVE (NEGATIVE); BLOOD, URINE NEGATIVE Ery/uL (NEGATIVE); COLOR,URINE YELLOW (YELLOW); KETONES,URINE NEGATIVE (NEGATIVE); LEUKOCYTE ESTERASE ,URINE 1+ (NEGATIVE); NITRITE, URINE NEGATIVE (NEGATIVE); PROTEIN,URINE 1+ mg/dl (NEGATIVE); UGLUCOSE NEGATIVE (NEGATIVE); UROBILINOGEN,URINE 0.2 EU/dL (0.2)
[2017-05-30 19:54] LABS: OCCULT BLOOD STOOL NEGATIVE (NEGATIVE)
[2017-05-30 20:30] LABS: RBC,URINE 0-2 /HPF (0-2)
[2017-05-30 20:31] LABS: BACTERIA,URINE Moderate /HPF (None Seen); SQUAMOUS EPITHELIAL CELL,UR Few /HPF (None Seen); YEAST,URINE Many /HPF (None Seen)
[2017-05-30] MEDS ORDERED: PIPERACILLIN /TAZOBACTAM 3.375 G VIAL IV ONE (21:33)
[2017-05-30] MEDS ORDERED: PANTOPRAZOLE 40 MG VIAL ONE (21:33)
[2017-05-30 22:40] VITALS: BP 139/72
[2017-05-31] VITALS (18 sets, daily range): BP systolic 91–157; BP diastolic 42–86
[2017-05-31] MEDS ORDERED: VANCOMYCIN 1 GM VIAL ONE (00:44)
[2017-05-31] MEDS ORDERED: MEROPENEM 1 G VIAL IV ONE ×2 (00:44→01:35)
[2017-05-31] MEDS: METRONIDAZOLE 500 MG TABLET GT SCH ×3 (04:28→21:47)
[2017-05-31] MEDS ORDERED: FEE PK DOSING 1 MIN EA MC ONE (07:09)
[2017-05-31 07:10] LABS: BASOPHILS % (AUTO) 0.2 % (0.0-2.0); EOSINOPHILS # (AUTO) 0.3 /CMM (0.0-0.7); EOSINOPHILS % (AUTO) 1.4 % (0.0-6.0); HEMATOCRIT 24 % (39-51); HEMOGLOBIN 7.7 g/dL (13.5-17.5); LYMPHOCYTES # (AUTO) 1.1 /CMM (0.8-4.8); LYMPHOCYTES % (AUTO) 5.7 % (20.0-44.0); MEAN CORPUSCULAR HEMOGLOBIN 29 PG (26.0-33.0); MEAN CORPUSCULAR HGB CONC 33 g/dl (31.0-36.0); MEAN CORPUSCULAR VOLUME 90 fL (80-96); MONOCYTES # (AUTO) 0.6 /CMM (0.1-1.30); MONOCYTES % (AUTO) 2.9 % (2.0-12.0); NEUTROPHILS # (AUTO) 17.3 /CMM (1.8-8.9); NEUTROPHILS % (AUTO) 89.8 % (43.0-81.0); PLATELET COUNT (AUTO) 310 /CMM (150-450); RED BLOOD CELL COUNT(AUTO) 2.63 MIL/uL (4.5-6.0); WHITE BLOOD COUNT (AUTO) 19.3 K/uL (4.3-11.0)
[2017-05-31 07:33] LABS: CALCIUM, SERUM 8.1 mg/dL (8.5-10.1); CARBON DIOXIDE 35 mmol/L (21-32); CHLORIDE 93 mmol/L (98-107); CREATININE 0.8 mg/dL (0.6-1.3); GLUCOSE 90 mg/dL (74-106); MAGNESIUM 1.9 mg/dL (1.8-2.4); POTASSIUM 4.4 mmol/L (3.5-5.1); SODIUM SERUM 132 mmol/L (136-145); UREA NITROGEN, BLOOD 23 mg/dL (7-18)
[2017-05-31] MEDS ORDERED: MEROPENEM 1 G in IV NS 0.9% 100 ML IV SCH (08:00)
[2017-05-31] MEDS: MEROPENEM 1 G in IV NS 0.9% 100 ML IV SCH ×2 (10:25→18:39)
[2017-05-31] MEDS: VANCOMYCIN 1 GM in IV D5W 250 ML IV SCH (14:26)
[2017-05-31] MEDS ORDERED: IPRATROPIUM NEB FS 0.5 MG/2.5 ML AMPUL.NEB IH PRN (15:30)
[2017-05-31] MEDS ORDERED: ALBUTEROL FS 2.5 MG/0.5 ML VIAL.NEB IH PRN (15:30)
[2017-05-31] MEDS ORDERED: MAGNESIUM HYDROXIDE 30 ML UDC GT PRN (15:30)
[2017-05-31] MEDS ORDERED: ACETAMINOPHEN 650 MG/20.3 ML UDC GT PRN (16:00)
[2017-05-31] MEDS ORDERED: Medication Not On Formulary EA (Cran/Vitc/Mannose/Inulin/Brom (Uti-Stat Liquid) 30 ML) GT SCH (17:00)
[2017-05-31] MEDS: FERROUS SULFATE UDC 300 MG/5 ML UDC GT SCH (18:11)
[2017-05-31] MEDS: ACETAMINOPHEN 650 MG/20.3 ML UDC GT SCH (18:11)
[2017-05-31] MEDS: DOCUSATE SODIUM LIQ 100 MG/10 ML UDC GT SCH (18:11)
[2017-05-31] MEDS: FAMOTIDINE (20 MG) 20 MG TABLET GT SCH (18:12)
[2017-05-31] MEDS: LACTOBACILLUS RHAMNOSUS GG 1 EACH CAP.SPRINK GT SCH (18:12)
[2017-05-31] MEDS: IPRATROPIUM NEB FS 0.5 MG/2.5 ML AMPUL.NEB IH SCH (19:49)
[2017-05-31] MEDS: ALBUTEROL FS 2.5 MG/0.5 ML VIAL.NEB NEB SCH (19:50)
[2017-05-31] MEDS: GLYTROL 1,000 ML BAG GT PRN (20:37)
[2017-05-31] MEDS: methylPREDNISolone (4MG) 4 MG TABLET GT SCH (21:46)
[2017-05-31] MEDS: VALSARTAN 40 MG TABLET GT SCH (21:47)
[2017-05-31] MEDS: CARVEDILOL 6.25 MG TABLET GT SCH (21:47)
[2017-06-01] VITALS: BP_SYST 122; BP_SYST 133; BP_DIAS 61; BP_DIAS 65
[2017-06-01] MEDS: IPRATROPIUM NEB FS 0.5 MG/2.5 ML AMPUL.NEB IH SCH ×4 (01:22→20:08)
[2017-06-01] MEDS: ALBUTEROL FS 2.5 MG/0.5 ML VIAL.NEB NEB SCH ×4 (01:22→20:08)
[2017-06-01] MEDS: MEROPENEM 1 G in IV NS 0.9% 100 ML IV SCH ×3 (01:43→17:19)
[2017-06-01] MEDS: VANCOMYCIN 1 GM in IV D5W 250 ML IV SCH ×2 (03:07→13:48)
[2017-06-01 04:00] VITALS: BP 107/52
[2017-06-01] MEDS: METRONIDAZOLE 500 MG TABLET GT SCH (05:28)
[2017-06-01 06:53] LABS: BASOPHILS % (AUTO) 0.1 % (0.0-2.0); HEMATOCRIT 27 % (39-51); LYMPHOCYTES % (AUTO) 3.9 % (20.0-44.0); MEAN CORPUSCULAR HEMOGLOBIN 28 PG (26.0-33.0); MEAN CORPUSCULAR HGB CONC 33 g/dl (31.0-36.0); MEAN CORPUSCULAR VOLUME 86 fL (80-96); MONOCYTES # (AUTO) 0.8 /CMM (0.1-1.30); MONOCYTES % (AUTO) 3.1 % (2.0-12.0); NEUTROPHILS # (AUTO) 24.6 /CMM (1.8-8.9); NEUTROPHILS % (AUTO) 92.9 % (43.0-81.0); PLATELET COUNT (AUTO) 331 /CMM (150-450); RDW COEFFICIENT OF VARIATION 19.6 (11.5-15.0); RED BLOOD CELL COUNT(AUTO) 3.19 MIL/uL (4.5-6.0); WHITE BLOOD COUNT (AUTO) 26.4 K/uL (4.3-11.0)
[2017-06-01 07:13] LABS: CALCIUM, SERUM 7.9 mg/dL (8.5-10.1); CARBON DIOXIDE 37 mmol/L (21-32); CHLORIDE 93 mmol/L (98-107); CREATININE 1.2 mg/dL (0.6-1.3); GLUCOSE 147 mg/dL (74-106); SODIUM SERUM 133 mmol/L (136-145); UREA NITROGEN, BLOOD 29 mg/dL (7-18)
[2017-06-01 08:00] VITALS: BP 145/94
[2017-06-01 08:14] LABS: BAND % (MANUAL) 6 % (0.0-5.0); LYMPHOCYTES % (MANUAL) 5 % (16-48); MONOCYTES % (MANUAL) 6 % (0-11.0); NEUTROPHILS % (MANUAL) 83 (42-76)
[2017-06-01] MEDS: FERROUS SULFATE UDC 300 MG/5 ML UDC GT SCH ×3 (09:33→16:13)
[2017-06-01] MEDS: VALSARTAN 40 MG TABLET GT SCH ×2 (09:33→21:30)
[2017-06-01] MEDS: FAMOTIDINE (20 MG) 20 MG TABLET GT SCH ×2 (09:34→16:13)
[2017-06-01] MEDS: SENNOSIDES 8.6 MG TABLET GT SCH (09:34)
[2017-06-01] MEDS: CALCIUM CARB 250MG /VITAMIN D 1 UDTAB GT SCH (09:34)
[2017-06-01] MEDS: ASPIRIN 81 MG TAB.CHEW GT SCH (09:34)
[2017-06-01] MEDS: ASCORBIC ACID 500 MG TABLET GT SCH (09:34)
[2017-06-01] MEDS: ZINC SULFATE 220 MG CAPSULE GT SCH (09:34)
[2017-06-01] MEDS: DOCUSATE SODIUM LIQ 100 MG/10 ML UDC GT SCH ×2 (09:34→16:13)
[2017-06-01] MEDS: LACTOBACILLUS RHAMNOSUS GG 1 EACH CAP.SPRINK GT SCH ×2 (09:34→16:13)
[2017-06-01] MEDS: PROSOURCE / PROSTAT (PYXIS) 30 ML UDC GT SCH (09:34)
[2017-06-01] MEDS: MULTIPLE VIT (LYCOPENE/FA/MV,CA,IRON,MIN/LUT)1 TAB GT SCH (09:35)
[2017-06-01] MEDS: CARVEDILOL 6.25 MG TABLET GT SCH ×2 (09:35→21:30)
[2017-06-01] MEDS: VANCOMYCIN HCL 125 MG/2.5 ML ORAL.SUSP PO SCH ×3 (11:08→23:51)
[2017-06-01 12:00] VITALS: BP 117/54
[2017-06-01 16:00] VITALS: BP 146/77
[2017-06-01 20:00] VITALS: BP 150/72
[2017-06-01] MEDS: ATORVASTATIN 10 MG TABLET GT SCH (21:29)
[2017-06-01] MEDS: methylPREDNISolone (4MG) 4 MG TABLET GT SCH (21:29)
[2017-06-01] MEDS: GLYTROL 1,000 ML BAG GT PRN ×2 (21:43→23:51)
[2017-06-02] VITALS: BP 137/75
[2017-06-02] MEDS: MEROPENEM 1 G in IV NS 0.9% 100 ML IV SCH ×3 (01:01→17:00)
[2017-06-02] MEDS: ALBUTEROL FS 2.5 MG/0.5 ML VIAL.NEB NEB SCH ×4 (01:16→20:11)
[2017-06-02] MEDS: IPRATROPIUM NEB FS 0.5 MG/2.5 ML AMPUL.NEB IH SCH ×4 (01:16→20:11)
[2017-06-02] MEDS ORDERED: VANCOMYCIN 1 GM in IV D5W 250 ML IV SCH (02:00)
[2017-06-02 04:00] VITALS: BP 145/79
[2017-06-02] MEDS: VANCOMYCIN HCL 125 MG/2.5 ML ORAL.SUSP PO SCH ×3 (05:29→17:00)
[2017-06-02 06:38] LABS: BASOPHILS # (AUTO) 0.1 /CMM (0.0-0.2); BASOPHILS % (AUTO) 0.3 % (0.0-2.0); EOSINOPHILS # (AUTO) 0.3 /CMM (0.0-0.7); EOSINOPHILS % (AUTO) 1.3 % (0.0-6.0); HEMATOCRIT 26 % (39-51); HEMOGLOBIN 8.6 g/dL (13.5-17.5); LYMPHOCYTES # (AUTO) 1.1 /CMM (0.8-4.8); LYMPHOCYTES % (AUTO) 5.4 % (20.0-44.0); MEAN CORPUSCULAR HEMOGLOBIN 28 PG (26.0-33.0); MEAN CORPUSCULAR HGB CONC 33 g/dl (31.0-36.0); MEAN CORPUSCULAR VOLUME 86 fL (80-96); MONOCYTES # (AUTO) 0.9 /CMM (0.1-1.30); MONOCYTES % (AUTO) 4.7 % (2.0-12.0); NEUTROPHILS # (AUTO) 17.6 /CMM (1.8-8.9); NEUTROPHILS % (AUTO) 88.3 % (43.0-81.0); PLATELET COUNT (AUTO) 308 /CMM (150-450); RDW COEFFICIENT OF VARIATION 18.7 (11.5-15.0); RED BLOOD CELL COUNT(AUTO) 3.06 MIL/uL (4.5-6.0); WHITE BLOOD COUNT (AUTO) 19.9 K/uL (4.3-11.0)
[2017-06-02 06:44] LABS: ALANINE AMINOTRANSFERASE 28 U/L (12-78); ALBUMIN 1.5 g/dL (3.4-5.0); ALKALINE PHOSPHATASE 147 U/L (46-116); ASPARTATE AMINOTRANSFERASE 38 U/L (15-37); BILIRUBIN,TOTAL 0.3 mg/dL (0.2-1.0); CALCIUM, SERUM 7.8 mg/dL (8.5-10.1); CARBON DIOXIDE 35 mmol/L (21-32); CHLORIDE 94 mmol/L (98-107); GLUCOSE 136 mg/dL (74-106); POTASSIUM 3.4 mmol/L (3.5-5.1); SODIUM SERUM 134 mmol/L (136-145); TOTAL PROTEIN, SERUM 5.8 g/dL (6.4-8.2); UREA NITROGEN, BLOOD 25 mg/dL (7-18)
[2017-06-02 08:00] VITALS: BP 140/65
[2017-06-02] MEDS: MULTIPLE VIT (LYCOPENE/FA/MV,CA,IRON,MIN/LUT)1 TAB GT SCH (08:19)
[2017-06-02] MEDS: FERROUS SULFATE UDC 300 MG/5 ML UDC GT SCH ×3 (08:19→16:57)
[2017-06-02] MEDS: ZINC SULFATE 220 MG CAPSULE GT SCH (08:19)
[2017-06-02] MEDS: FAMOTIDINE (20 MG) 20 MG TABLET GT SCH ×2 (08:19→16:57)
[2017-06-02] MEDS: DOCUSATE SODIUM LIQ 100 MG/10 ML UDC GT SCH ×2 (08:19→16:57)
[2017-06-02] MEDS: ACETAMINOPHEN 650 MG/20.3 ML UDC GT SCH (08:19)
[2017-06-02] MEDS: PROSOURCE / PROSTAT (PYXIS) 30 ML UDC GT SCH (08:19)
[2017-06-02] MEDS: ASCORBIC ACID 500 MG TABLET GT SCH (08:19)
[2017-06-02] MEDS: LACTOBACILLUS RHAMNOSUS GG 1 EACH CAP.SPRINK GT SCH ×2 (08:19→16:57)
[2017-06-02] MEDS: VALSARTAN 40 MG TABLET GT SCH ×2 (08:20→22:27)
[2017-06-02] MEDS: ASPIRIN 81 MG TAB.CHEW GT SCH (08:20)
[2017-06-02] MEDS: CALCIUM CARB 250MG /VITAMIN D 1 UDTAB GT SCH (08:20)
[2017-06-02] MEDS: CARVEDILOL 6.25 MG TABLET GT SCH ×2 (08:20→22:27)
[2017-06-02] MEDS: SENNOSIDES 8.6 MG TABLET GT SCH (08:20)
[2017-06-02 09:47] LABS: BAND % (MANUAL) 13 % (0.0-5.0); EOSINOPHILS % (MANUAL) 3 % (0-4); LYMPHOCYTES % (MANUAL) 4 % (16-48); MONOCYTES % (MANUAL) 10 % (0-11.0); NEUTROPHILS % (MANUAL) 70 (42-76)
[2017-06-02] MEDS: FLUCONAZOLE (100 MG) 100 MG TABLET PO SCH (10:10)
[2017-06-02] MEDS ORDERED: POTASSIUM CHLORIDE 20 MEQ POWDER PACKET GT SCH (10:30)
[2017-06-02 12:00] VITALS: BP 129/63
[2017-06-02] MEDS ORDERED: Z GUARD REMEDY 2 OZ OINT TP PRN (14:30)
[2017-06-02] MEDS ORDERED: HYDROGEL DRESSING 90 GM TUBE TP PRN (14:30)
[2017-06-02] MEDS: VANCOMYCIN 1 GM in IV NS 0.9% 250 ML IV SCH (14:38)
[2017-06-02] MEDS: Z GUARD REMEDY 2 OZ OINT TP SCH (15:21)
[2017-06-02] MEDS: HYDROGEL DRESSING 90 GM TUBE TP SCH (15:22)
[2017-06-02 16:00] VITALS: BP 148/71
[2017-06-02 20:00] VITALS: BP 168/79
[2017-06-02] MEDS: MUPIROCIN OINT 2% 22 GM TUBE SCH (21:00)
[2017-06-02] MEDS: ATORVASTATIN 10 MG TABLET GT SCH (22:27)
[2017-06-02] MEDS: methylPREDNISolone (4MG) 4 MG TABLET GT SCH (22:27)
[2017-06-03] VITALS: BP 124/71
[2017-06-03] MEDS: ALBUTEROL FS 2.5 MG/0.5 ML VIAL.NEB NEB SCH ×3 (01:16→13:20)
[2017-06-03] MEDS: IPRATROPIUM NEB FS 0.5 MG/2.5 ML AMPUL.NEB IH SCH ×3 (01:16→13:20)
[2017-06-03] MEDS: MEROPENEM 1 G in IV NS 0.9% 100 ML IV SCH ×3 (02:37→17:46)
[2017-06-03 04:00] VITALS: BP 141/86
[2017-06-03 04:25] VITALS: BP 141/86
[2017-06-03] MEDS: VANCOMYCIN HCL 125 MG/2.5 ML ORAL.SUSP PO SCH ×4 (05:32→17:46)
[2017-06-03 06:25] LABS: BASOPHILS % (AUTO) 0.2 % (0.0-2.0); EOSINOPHILS # (AUTO) 0.2 /CMM (0.0-0.7); EOSINOPHILS % (AUTO) 1.5 % (0.0-6.0); HEMATOCRIT 26 % (39-51); HEMOGLOBIN 8.6 g/dL (13.5-17.5); LYMPHOCYTES # (AUTO) 1.5 /CMM (0.8-4.8); LYMPHOCYTES % (AUTO) 13.1 % (20.0-44.0); MEAN CORPUSCULAR HEMOGLOBIN 28 PG (26.0-33.0); MEAN CORPUSCULAR HGB CONC 33 g/dl (31.0-36.0); MEAN CORPUSCULAR VOLUME 85 fL (80-96); MONOCYTES # (AUTO) 1.2 /CMM (0.1-1.30); MONOCYTES % (AUTO) 10.8 % (2.0-12.0); NEUTROPHILS # (AUTO) 8.4 /CMM (1.8-8.9); NEUTROPHILS % (AUTO) 74.4 % (43.0-81.0); PLATELET COUNT (AUTO) 299 /CMM (150-450); RDW COEFFICIENT OF VARIATION 18.8 (11.5-15.0); RED BLOOD CELL COUNT(AUTO) 3.03 MIL/uL (4.5-6.0); WHITE BLOOD COUNT (AUTO) 11.3 K/uL (4.3-11.0)
[2017-06-03 06:48] LABS: CALCIUM, SERUM 7.7 mg/dL (8.5-10.1); CARBON DIOXIDE 35 mmol/L (21-32); CHLORIDE 97 mmol/L (98-107); CREATININE 0.8 mg/dL (0.6-1.3); GLUCOSE 109 mg/dL (74-106); POTASSIUM 3.7 mmol/L (3.5-5.1); SODIUM SERUM 135 mmol/L (136-145); UREA NITROGEN, BLOOD 23 mg/dL (7-18)
[2017-06-03 08:00] VITALS: BP 163/53
[2017-06-03] MEDS: ASPIRIN 81 MG TAB.CHEW GT SCH (08:52)
[2017-06-03] MEDS: PROSOURCE / PROSTAT (PYXIS) 30 ML UDC GT SCH (08:52)
[2017-06-03] MEDS: ACETAMINOPHEN 650 MG/20.3 ML UDC GT SCH (08:52)
[2017-06-03] MEDS: ASCORBIC ACID 500 MG TABLET GT SCH (08:53)
[2017-06-03] MEDS: MULTIPLE VIT (LYCOPENE/FA/MV,CA,IRON,MIN/LUT)1 TAB GT SCH (08:53)
[2017-06-03] MEDS: FLUCONAZOLE (100 MG) 100 MG TABLET PO SCH (08:53)
[2017-06-03] MEDS: CARVEDILOL 6.25 MG TABLET GT SCH (08:53)
[2017-06-03] MEDS: FERROUS SULFATE UDC 300 MG/5 ML UDC GT SCH ×3 (08:53→16:52)
[2017-06-03] MEDS: ZINC SULFATE 220 MG CAPSULE GT SCH (08:54)
[2017-06-03] MEDS: VALSARTAN 40 MG TABLET GT SCH (08:54)
[2017-06-03] MEDS: CALCIUM CARB 250MG /VITAMIN D 1 UDTAB GT SCH (08:54)
[2017-06-03] MEDS: LACTOBACILLUS RHAMNOSUS GG 1 EACH CAP.SPRINK GT SCH ×2 (08:54→16:52)
[2017-06-03] MEDS: FAMOTIDINE (20 MG) 20 MG TABLET GT SCH ×2 (08:54→16:52)
[2017-06-03] MEDS: SENNOSIDES 8.6 MG TABLET GT SCH (08:55)
[2017-06-03] MEDS: DOCUSATE SODIUM LIQ 100 MG/10 ML UDC GT SCH ×2 (08:55→16:52)
[2017-06-03] MEDS: MUPIROCIN OINT 2% 22 GM TUBE SCH (08:56)
[2017-06-03] MEDS: HYDROGEL DRESSING 90 GM TUBE TP SCH (08:57)
[2017-06-03] MEDS: Z GUARD REMEDY 2 OZ OINT TP SCH (08:57)
[2017-06-03 12:00] VITALS: BP 166/79
[2017-06-03] MEDS: VANCOMYCIN 1 GM in IV NS 0.9% 250 ML IV SCH (14:40)
[2017-06-03 16:00] VITALS: BP 146/77
== END 2017-06-03 18:55 | DRG 871 ==
LOC: ER 16:57 → TELE-TD 21:28 → TELE1 06-01 10:55
PROVIDERS: ADMIT Internal Medicine; ATTEND Internal Medicine
PROC: 5A1945Z Respiratory Ventilation, 24-96 Consecutive Hours (ICD-10-PCS; principal; 2017-05-30)
PROC: 06HM33Z Insertion of Infusion Device into Right Femoral Vein, Percutaneous Approach (ICD-10-PCS; 2017-05-30)
PROC: 30233N1 Transfusion of Nonautologous Red Blood Cells into Peripheral Vein, Percutaneous Approach (ICD-10-PCS; 2017-05-31)
DX: A41.9 Sepsis, unspecified organism (principal); J15.9 Unspecified bacterial pneumonia; Z99.11 Dependence on respirator [ventilator] status; A04.72 Enterocolitis due to Clostridium difficile, not specified as recurrent; J90 Pleural effusion, not elsewhere classified; J96.11 Chronic respiratory failure with hypoxia; J96.12 Chronic respiratory failure with hypercapnia; J44.0 Chronic obstructive pulmonary disease with (acute) lower respiratory infection; B37.49 Other urogenital candidiasis; Z93.0 Tracheostomy status; D63.8 Anemia in other chronic diseases classified elsewhere; E78.5 Hyperlipidemia, unspecified; E88.09 Other disorders of plasma-protein metabolism, not elsewhere classified; I25.10 Atherosclerotic heart disease of native coronary artery without angina pectoris; Z93.1 Gastrostomy status; Z87.891 Personal history of nicotine dependence; R13.10 Dysphagia, unspecified; E11.9 Type 2 diabetes mellitus without complications; K21.9 Gastro-esophageal reflux disease without esophagitis; I10 Essential (primary) hypertension; B95.62 Methicillin resistant Staphylococcus aureus infection as the cause of diseases classified elsewhere
CPT/HCPCS: 31720; 36415; 71045-TC; 80048-TC; 80053-TC; 80076-TC; 80202-TC; 81000-TC; 82272-TC; 83605-TC; 83735-TC; 84484-TC; 85025-TC; 85730-TC; 86850-TC; 86921-TC; 87040-TC; 87081-TC; 87086-TC; 94002-TC; 94003-TC; 94760-TC; 94762-TC; 99082-TC; A4606; A6248; A6402; A6403; C1751; C9113; J2185; J2543; J3370; J7030; J7050; J7060; J7509; P9016-BL; Z7610

== ENCOUNTER 2017-07-14 22:51 | Inpatient (IN) | payer OTHER ==
[~2017-07-14] VITALS: Ht 172.7 cm; Wt 77.1 kg
[~2017-07-14 22:51] MED LIST changes: +ACET-2605 GT; +ALBU2.5V13 IH; +AMIN30LI4 GT; -BISA-79 PR; +BLOO-697 IN; +CALC-261 GT; -DOCU-141 GT; +DOCU50LI GT; -IPRA0.2S49 NEB; +IPRA0.2S9 IH; -LEVO500T75 PO; +MAGN400O6 GT; +METH4TAB17 GT; -METH4TAB3 PO; -MULT-213 GT; +MULT-447 GT; -MUPI22OI7; +NUT.237L30 GT; +SACC250C GT; +SENN-18 GT
--- NOTE | 2017-07-14 23:11 | NUR ---
PT BIB RA WITH A C/O DESATURATING AT FACILITY. PT IS CURRENTLY BEING BAGGED AND IS SATURATING AT 100%. PT HAS GONZALEZ TO GRAVITY, RUE MIDLINE 18G DOUBLE LUMEN. PT'S MIDLINE RED PORT IS NOT FLUSHING, THE PURPLE PORT IS FLUSHING. BLOOD SAMPLE OBTAINED AND SENT TO LAB. PT HAS BILATERAL HEEL PROTECTORS ON AND NO HEEL WOUNDS NOTED. PT HAS HEALING WOUNDS ON BLE. PT HAS STERI STRIPS NOTED ON RT AND LT FLANK (S/P BILATERAL CHEST TUBES) EXCORIATION NOTED ON LEFT FLANK WELL. G-TUBE NOTED. BILATERAL HANDS EDEMATOUS AND BLE 3+ PITTING EDEMA NOTED. BUE DISCOLORATION NOTED AND BLE SLIGHT DISCOLORATION NOTED.
[2017-07-14] MEDS ORDERED: methylPREDNISolone SOD SUCC 125 MG/2ML VIAL IV ONE (23:30)
[2017-07-14 23:31] VITALS: BP 162/84
[2017-07-14] MEDS ORDERED: LORAZEPAM INJ 2 MG/ML VIAL ONE (23:40)
[2017-07-14] MEDS ORDERED: methylPREDNISolone SOD SUCC 125 MG/2ML VIAL ONE (23:40)
[2017-07-14] MEDS ORDERED: INSU100V9 IJ (23:47)
[2017-07-14] MEDS ORDERED: LEVE500T9 GT (23:47)
[2017-07-14] MEDS ORDERED: INSU100V7 SQ (23:47)
[2017-07-14 23:54] LABS: BASOPHILS % (AUTO) 0.3 % (0.0-2.0); EOSINOPHILS % (AUTO) 2.6 % (0.0-6.0); HEMATOCRIT 30 % (39-51); HEMOGLOBIN 9.9 g/dL (13.5-17.5); LYMPHOCYTES # (AUTO) 1.1 /CMM (0.8-4.8); LYMPHOCYTES % (AUTO) 8.4 % (20.0-44.0); MEAN CORPUSCULAR HGB CONC 33 g/dl (31.0-36.0); MEAN CORPUSCULAR VOLUME 89 fL (80-96); MONOCYTES # (AUTO) 0.8 /CMM (0.1-1.30); MONOCYTES % (AUTO) 6.2 % (2.0-12.0); NEUTROPHILS # (AUTO) 10.9 /CMM (1.8-8.9); NEUTROPHILS % (AUTO) 82.5 % (43.0-81.0); PLATELET COUNT (AUTO) 77 /CMM (150-450); RDW COEFFICIENT OF VARIATION 18.5 (11.5-15.0); RED BLOOD CELL COUNT(AUTO) 3.32 MIL/uL (4.5-6.0); WHITE BLOOD COUNT (AUTO) 13.2 K/uL (4.3-11.0)
--- NOTE | 2017-07-14 23:55 | NUR ---
PT REC'D TRACHED VIA AMBU BAG 15LPM. NO RESP DISTRESS NOTED. PT PLACED ON [facility] VENT SETTINGS GIVEN FROM FIRE DEPARTMENT. SX'D THICK MOD BLOOD TINGED SECRETIONS. VENT PLUGGED INTO RED OUTLET. ALARMS ARE SET AND AUDIBLE. AMBU BAG BEDSIDE. WILL CONTINUE TO MONITOR. Addendum: 07/14/17 at 8387 by HAN ALBERTS RT Amended: Links added.
--- NOTE | 2017-07-14 23:57 | NUR ---
VENT CHANGES PER DR BALL Addendum: 07/15/17 at 0000 by HAN ALBERTS RT Amended: Links added.
[2017-07-14 23:59] LABS: ABG BASE EXCESS -3.2 mmol/L; ABG OXYGEN SATURATION 97.4 % (92.0-98.5); ABG PCO2 47.4 mmHg (35.0-45.0); ABG PH 7.308 (7.350-7.450); ABG PO2 113.8 mmHg (75.0-100.0); AaDO2 44.4 mmHg; COHb 0.7 % (0.5-1.5); MetHb 0.6 % (0.0-1.5); O2Hb 96.1 % (94.0-97.0); PEEP,BG 0 cm H2O; SITE, ABG Left Radial; VENT MODE, BG AC 20 500 30%
[2017-07-15] VITALS (7 sets, daily range): BP systolic 101–152; BP diastolic 61–90
[2017-07-15] MEDS ORDERED: LORAZEPAM INJ 2 MG/ML VIAL IV ONE
[2017-07-15 00:13] LABS: TROPONIN I 0.057 ng/mL (0.00-0.056)
[2017-07-15 00:24] LABS: ALANINE AMINOTRANSFERASE 17 U/L (12-78); ALBUMIN 1.5 g/dL (3.4-5.0); ALKALINE PHOSPHATASE 176 U/L (46-116); ASPARTATE AMINOTRANSFERASE 20 U/L (15-37); B-TYPE NATRIURETIC PEPTIDE 66688 PG/ML (0-125); BILIRUBIN,DIRECT 0.1 mg/dL (0.0-0.2); BILIRUBIN,TOTAL 0.3 mg/dL (0.2-1.0); CARBON DIOXIDE 25 mmol/L (21-32); CHLORIDE 107 mmol/L (98-107); CREATININE 5.9 mg/dL (0.6-1.3); GLUCOSE 132 mg/dL (74-106); POTASSIUM 3.9 mmol/L (3.5-5.1); SODIUM SERUM 146 mmol/L (136-145)
--- NOTE | 2017-07-15 00:25 | NUR ---
PT LEFT FOR CT WITH RT, RN AND EMT.
[2017-07-15 00:28] LABS: BAND % (MANUAL) 7 % (0.0-5.0); EOSINOPHILS % (MANUAL) 2 % (0-4); LYMPHOCYTES % (MANUAL) 9 % (16-48); MONOCYTES % (MANUAL) 8 % (0-11.0); NEUTROPHILS % (MANUAL) 74 (42-76)
[2017-07-15 00:33] LABS: UREA NITROGEN, BLOOD 155 mg/dL (7-18)
[2017-07-15] MEDS: ALBUTEROL FS 2.5 MG/3 ML VIAL.NEB NEB ONE ×2 (00:33→01:09)
[2017-07-15] MEDS: IPRATROPIUM NEB FS 0.5 MG/2.5 ML AMPUL.NEB NEB ONE ×2 (00:33→01:09)
[2017-07-15] MEDS ORDERED: ALBUTEROL FS 2.5 MG/3 ML VIAL.NEB ONE (00:36)
[2017-07-15] MEDS ORDERED: IPRATROPIUM NEB FS 0.5 MG/2.5 ML AMPUL.NEB ONE (00:36)
--- NOTE | 2017-07-15 00:50 | NUR ---
PT RETURNED FROM CT.
--- NOTE | 2017-07-15 01:10 | NUR ---
Margaret grady in ED - 07/15/17 at 0115 by [email or web address] PT RETURNED FROM CT.
--- NOTE | 2017-07-15 01:16 | NUR ---
PT APPEARS TO BE RESTING COMFORTABLY. VSS.
[2017-07-15] MEDS ORDERED: CEFTRIAXONE 1GM BAG (ER ONLY) 1 GM/50 ML PIGGYBACK IV ONE (02:00)
[2017-07-15] MEDS ORDERED: CEFTRIAXONE 1GM BAG (ER ONLY) 50 ML IV ONE (02:02)
[2017-07-15] MEDS ORDERED: VANCOMYCIN 1 GM in IV D5W 250 ML IV ONE (02:30)
--- NOTE | 2017-07-15 02:40 | NUR ---
PT WAS CLEANED AND NEW LINENS, DIAPER, AND CHUX APPLIED.
[2017-07-15] MEDS ORDERED: VANCOMYCIN 1 GM VIAL ONE (03:01)
--- NOTE | 2017-07-15 03:03 | NUR ---
REPORT GIVEN TO AURELIANO DUONG
[2017-07-15 03:36] LABS: OCCULT BLOOD STOOL POSITIVE (NEGATIVE)
--- NOTE | 2017-07-15 04:50 | NUR ---
SARAY RN NOTE ADMITTED 77 YEARS OLD MALE PT FROM ER WITH THE DX OF ACUTE, CHRONIC RESP FAILURE, SECONDRY DX ACUTE RENAL FAILURE BY DR TERRY. PT IS AWAKE, NON VERBAL PT ON VENT/TRACH PORTEX #8 AC 20 TV 500 FIO2 30% PEEP 0. TOLERATING THE SETTINGS WELL. NO DISTRESS OR DISCOMFORT NOTED. NO S/S OF PAIN NOTED. PT HAS MULTIPLE SKIN ISSUES. PICTURES TAKEN AND PLACE THEM IN THE CHART. KEPT THE PT CLEAN AND DRY. F/C INTACT AND PATENT NO OUT PUT NOTED AT THIS TIME. ON TELE SR. GT INTACT AND PATENT WILL START GT FEEDING ORDERED. RUDI MIDLINE #18 G INTACT AND PATENT ONLY PURPLE LUMEN, RED LUMEN NON FUNCTIONING. ALL ORDERS CHECKED AND CARRIED OUT. WOUND AND DIETRY CONSULT TRIGGERED. SIDE RAILS UP X 3 AND CALL LIGHT WITHIN REACH.
[2017-07-15] MEDS ORDERED: PIPERACILLIN /TAZOBACTAM 2.25 G VIAL IV ONE (05:03)
[2017-07-15] MEDS: PIPERACILLIN /TAZOBACTAM 2.25 G in IV NS 0.9% 50 ML IV SCH ×3 (05:51→21:14)
[2017-07-15] MEDS: IV 1/2NS 1000 ML 1,000 ML IV PRN ×2 (05:52→16:58)
--- NOTE | 2017-07-15 07:04 | NUR ---
SARAY RN NOTE REPORT GIVEN TO NURSE MAST, AND ALSO GIVEN SKIN PICTURES TO HER TO CHART AND CONTINUE TO MONITOR HIM. ALL NEEDS ATTENDED.
[2017-07-15 07:39] LABS: BASOPHILS % (AUTO) 0.1 % (0.0-2.0); HEMATOCRIT 30 % (39-51); LYMPHOCYTES # (AUTO) 0.2 /CMM (0.8-4.8); LYMPHOCYTES % (AUTO) 2.1 % (20.0-44.0); MEAN CORPUSCULAR HGB CONC 33 g/dl (31.0-36.0); MEAN CORPUSCULAR VOLUME 90 fL (80-96); MONOCYTES # (AUTO) 0.1 /CMM (0.1-1.30); MONOCYTES % (AUTO) 0.6 % (2.0-12.0); NEUTROPHILS # (AUTO) 10.2 /CMM (1.8-8.9); NEUTROPHILS % (AUTO) 97.2 % (43.0-81.0); PLATELET COUNT (AUTO) 81 /CMM (150-450); RED BLOOD CELL COUNT(AUTO) 3.35 MIL/uL (4.5-6.0); WHITE BLOOD COUNT (AUTO) 10.5 K/uL (4.3-11.0)
[2017-07-15 08:04] LABS: CALCIUM, SERUM 8.8 mg/dL (8.5-10.1); CARBON DIOXIDE 21 mmol/L (21-32); CHLORIDE 107 mmol/L (98-107); CREATININE 5.7 mg/dL (0.6-1.3); GLUCOSE 165 mg/dL (74-106); POTASSIUM 4.3 mmol/L (3.5-5.1); SODIUM SERUM 145 mmol/L (136-145)
[2017-07-15 08:05] LABS: UREA NITROGEN, BLOOD 152 mg/dL (7-18)
[2017-07-15] MEDS: ALBUTEROL FS 2.5 MG/0.5 ML VIAL.NEB NEB SCH ×2 (09:00→13:19)
[2017-07-15] MEDS: IPRATROPIUM NEB FS 0.5 MG/2.5 ML AMPUL.NEB NEB SCH ×3 (09:00→19:52)
[2017-07-15] MEDS ORDERED: INSULIN GLARGINE, 100 UNIT/ML CARTRIDGE SQ SCH (09:19)
[2017-07-15] MEDS ORDERED: INSULIN REGULAR, HUMAN 100 UNIT/ML 10 ML VIAL IJ PRN (09:30)
[2017-07-15] MEDS ORDERED: GLYTROL 1,000 ML BAG GT PRN (09:30)
[2017-07-15] MEDS ORDERED: ACETAMINOPHEN 650 MG/20.3 ML UDC PO PRN (09:30)
[2017-07-15] MEDS ORDERED: GLYTROL 1,000 ML BAG GT SCH ×2 (09:30)
[2017-07-15] MEDS ORDERED: DEXTROSE 50%-WATER 50 ML DISP.SYRIN IVP PRN (09:30)
[2017-07-15] MEDS: methylPREDNISolone SOD SUCC 40 MG/ML VIAL IV SCH ×3 (10:30→16:58)
[2017-07-15] MEDS ORDERED: FEE PK DOSING 1 MIN EA MC ONE (10:36)
[2017-07-15 11:49] LABS: LYMPHOCYTES % (MANUAL) 3 % (16-48); NEUTROPHILS % (MANUAL) 97 (42-76)
[2017-07-15 12:10] LABS: ABG BASE EXCESS -5.6 mmol/L; ABG PCO2 39.7 mmHg (35.0-45.0); ABG PH 7.321 (7.350-7.450); ABG PO2 120.2 mmHg (75.0-100.0); AaDO2 47.1 mmHg; COHb 2.1 % (0.5-1.5); MetHb 0.3 % (0.0-1.5); O2Hb 94.7 % (94.0-97.0); PEEP,BG 5 cm H2O; SITE, ABG Right Radial; VENT MODE, BG AC 22 500 +5 30%; VT, ABG 500 mL
--- NOTE | 2017-07-15 12:12 | NUR ---
WOUND CARE CONSULT: PT PRESENTS WITH MULTIPLE SKIN ISSUES INCLUDING PROFOUND PITTING EDEMA (4+) WHICH IS GENERALIZED AND SOME WEEPING EDEMA NOTED. STAGE 2 ULCERS NOTED TO SACRUM AND RT BUTTOCK, WOUND TO RT KNEE, INTACT DEEP TISSUE INJURIES NOTED TO RT LOWER LEG, EDEMA TO PENIS AND SCROTUM WITH OPEN AREAS, OPEN BLISTER TO RT THIGH AND MULTIPLE BRUISES NOTED, PRESENT ON ADMISSION. SKIN IS FRAGILE. RECOMMEND SURGICAL CONSULT FOR PENIS. ALL SKIN PROTECTION AND WOUND CARE RECOMMENDATIONS DISCUSSED WITH NURSING STAFF. FIRST STEP MATTRESS ORDERED. WILL SEE PRN. DANIELLE IN AGREEMENT WITH PLAN OF CARE. Addendum: 07/15/17 at 1216 by ALCIRA PAL WNDNU Amended: Links added.
[2017-07-15] MEDS ORDERED: HYDROGEL DRESSING 90 GM TUBE TP PRN (12:30)
[2017-07-15] MEDS ORDERED: Z GUARD REMEDY 2 OZ OINT TP PRN (12:30)
[2017-07-15] MEDS: Z GUARD REMEDY 2 OZ OINT TP SCH (12:41)
[2017-07-15] MEDS: HYDROGEL DRESSING 90 GM TUBE TP SCH (12:41)
[2017-07-15] MEDS: BLOOD SUGAR DIAGNOSTIC 1 EACH STRIP IN SCH ×3 (12:41→23:42)
[2017-07-15] MEDS: LEVETIRACETAM SOL (5 ML) 100 MG/ML UDC GT SCH ×2 (14:45→21:16)
--- NOTE | 2017-07-15 15:54 | NUR ---
PT RECEIVED TRACHED ON MECHANICAL VENT W/ SETTINGS PER MD ORDER. TRACH TUBE PATENT, CLEAN. BREATH SOUNDS EQUAL DIMINISHED. VENT IN RED OUTLET, VENT ALARMS CHECKED AND AUDIBLE, AMBUBAG AT BEDSIDE. HHN TX GIVEN INLINE PER MD ORDER. PT SX'ED AND LAVAGED PRN. NO RESP DISTRESS NOTED. PLAN IS TO CONTINUE CARE W/ CURRENT MD ORDERS AND MONITOR FOR CHANGE IN STATUS. Addendum: 07/15/17 at 1555 by ISIDRO MURILLO RT Amended: Links added.
--- NOTE | 2017-07-15 16:14 | NUR ---
Patient is trach/vent dependent, resident of [facility] [phone]. He is bedfast most of the time, requires total assist with adl's. Patient DPOA-Maddy Francis requesting patient be discharge to [facility]. Explained to Maddy that patient is a [employer] member and insurance is not contracted with [facility]. Current plan is to return to [facility] [phone] once d/c Addendum: 07/15/17 at 1616 by ROBERTO ROWLAND RN Amended: Links added.
[2017-07-15] MEDS: GLUCERNA 1.2 1,000 ML BOTTLE NG PRN (16:23)
[2017-07-15] MEDS: ALBUTEROL HALF STRENGTH 1.25 MG/3 ML VIAL.NEB NEB SCH (19:52)
--- NOTE | 2017-07-15 19:52 | NUR ---
PT ON VENT A/C MODE PT SUMMER VENT SETTINGS WELL WITH NO RESPIRATORY DISTRESS NOTED ATT. PT HAS A TRACH WHICH IS IN PLACE AND SECURE. HHN TX MD ORDERED. BREATH SOUNDS COURSE SX PT PRN RETURNING SMALL TO MOD PALE YELLOW SECRETIONS. VENT ALARMS CHECKED FOUND TO BE FUNCTIONAL, AUDIBLE AND WITHIN RANGE. VENT PLUGGED INOT RED OUTLET. BVM AT BEDSIDE.
[2017-07-15] MEDS: CARVEDILOL 6.25 MG TABLET GT SCH (21:15)
--- NOTE | 2017-07-15 23:27 | NUR ---
RN NOTE GONZALEZ CATHETER IS DRAINING URINE WELL, SKIN IS INTACT, NO OCCLUSION NOTED
[2017-07-16] VITALS: BP 140/59
[2017-07-16] MEDS: ALBUTEROL HALF STRENGTH 1.25 MG/3 ML VIAL.NEB NEB SCH ×4 (01:43→19:10)
[2017-07-16] MEDS: IPRATROPIUM NEB FS 0.5 MG/2.5 ML AMPUL.NEB NEB SCH ×4 (01:43→19:10)
[2017-07-16 04:00] VITALS: BP 158/74
[2017-07-16] MEDS: PIPERACILLIN /TAZOBACTAM 2.25 G in IV NS 0.9% 50 ML IV SCH ×3 (04:34→20:32)
[2017-07-16] MEDS: IV 1/2NS 1000 ML 1,000 ML IV PRN (04:44)
[2017-07-16] MEDS ORDERED: INSULIN REGULAR, HUMAN 100 UNIT/ML 3 ML VIAL SQ PRN (06:00)
[2017-07-16] MEDS: BLOOD SUGAR DIAGNOSTIC 1 EACH STRIP IN SCH ×4 (06:34→23:27)
[2017-07-16 06:43] LABS: HEMATOCRIT 29 % (39-51); HEMOGLOBIN 9.5 g/dL (13.5-17.5); LYMPHOCYTES # (AUTO) 0.5 /CMM (0.8-4.8); LYMPHOCYTES % (AUTO) 5.7 % (20.0-44.0); MEAN CORPUSCULAR HGB CONC 33 g/dl (31.0-36.0); MEAN CORPUSCULAR VOLUME 89 fL (80-96); MONOCYTES # (AUTO) 0.2 /CMM (0.1-1.30); MONOCYTES % (AUTO) 1.9 % (2.0-12.0); NEUTROPHILS # (AUTO) 8.2 /CMM (1.8-8.9); NEUTROPHILS % (AUTO) 92.4 % (43.0-81.0); PLATELET COUNT (AUTO) 92 /CMM (150-450); RDW COEFFICIENT OF VARIATION 18.4 (11.5-15.0); RED BLOOD CELL COUNT(AUTO) 3.22 MIL/uL (4.5-6.0); WHITE BLOOD COUNT (AUTO) 8.9 K/uL (4.3-11.0)
--- NOTE | 2017-07-16 06:55 | NUR ---
RN NOTE NO ACUTE CHANGES ON MY SHIFT, PATIENT RESTED WELL AT NIGHT, NO RESPIRATORY DISTRESS NOTED, NO PAIN OR DISCOMFORT, SR ON THE MONITOR, GONZALEZ CATH IS INTACT, NO OBSTRUCTION NOTED, DRAINS URINE WELL, ALL SAFETY MEASURES TAKEN
[2017-07-16 07:19] LABS: ALANINE AMINOTRANSFERASE 18 U/L (12-78); ALBUMIN 1.6 g/dL (3.4-5.0); ALKALINE PHOSPHATASE 152 U/L (46-116); ASPARTATE AMINOTRANSFERASE 28 U/L (15-37); BILIRUBIN,TOTAL 0.4 mg/dL (0.2-1.0); CALCIUM, SERUM 8.7 mg/dL (8.5-10.1); CARBON DIOXIDE 20 mmol/L (21-32); CHLORIDE 104 mmol/L (98-107); CREATININE 5.7 mg/dL (0.6-1.3); GLUCOSE 139 mg/dL (74-106); POTASSIUM 4.4 mmol/L (3.5-5.1); SODIUM SERUM 143 mmol/L (136-145); TOTAL PROTEIN, SERUM 5.9 g/dL (6.4-8.2)
--- NOTE | 2017-07-16 07:20 | NUR ---
RN NOTES CHRONIC VENT/TRACH DEPENDENT, NONVERBAL, TOLERATING VENT SETTINGS NO SOB OR DISTRESS NOTED. SR ON THE TELE ERICA HR 98. RUDI MIDLINE INTACT WITH IVF AT 100ML/HR. GTF AT 30ML/HR TOLERATING WELL. BED LOCKED AND IN LOWEST POSITION, CALL LIGHT WITHIN REACH, SIDE RAILS UPX3, WILL CONT TO ERICA.
[2017-07-16 07:35] LABS: UREA NITROGEN, BLOOD 155 mg/dL (7-18)
--- NOTE | 2017-07-16 07:55 | NUR ---
RECEIVED PATIENT ON CONTINOUS VENT SUPPORT. B/S LILO, SUCTIONED PATIENT WITH A MODERATE AMOUNT OF THIN PALE YELLOWISH SECRETIONS . TRACHEAL TUBE PATENT AND SECURED. AMBUBAG ON PATIENT BEDSIDE. Addendum: 07/16/17 at 1131 by TREY CLARK RT Amended: Links added.
[2017-07-16 08:00] VITALS: BP 95/62
--- NOTE | 2017-07-16 08:00 | NUR ---
RECEIVED PATIENT ON VENT SUPPORT. B/S LILO, SUCTIONED PATIENT WITH A MODERATE AMOUNT OF THIN PALE YELLOWISH SECRETIONS . INLINE HHN TREATMENT WAS GIVEN . NO ADVERSE REACTION NOTED. TRACHEAL TUBE PATENT AND SECURED. AMBUBAG ON PATIENT BEDSIDE. Addendum: 07/16/17 at 1137 by TREY CLARK RT Amended: Links added.
[2017-07-16] MEDS: ZINC SULFATE 220 MG CAPSULE GT SCH (08:20)
[2017-07-16] MEDS: LEVETIRACETAM SOL (5 ML) 100 MG/ML UDC GT SCH ×2 (08:20→20:31)
[2017-07-16] MEDS: ASPIRIN 81 MG TAB.CHEW GT SCH (08:20)
[2017-07-16] MEDS: CARVEDILOL 6.25 MG TABLET GT SCH ×2 (08:21→20:31)
[2017-07-16] MEDS: HYDROGEL DRESSING 90 GM TUBE TP SCH (08:22)
[2017-07-16] MEDS: Z GUARD REMEDY 2 OZ OINT TP SCH (08:22)
[2017-07-16 09:47] LABS: LYMPHOCYTES % (MANUAL) 3 % (16-48); MONOCYTES % (MANUAL) 2 % (0-11.0); NEUTROPHILS % (MANUAL) 95 (42-76)
[2017-07-16] MEDS ORDERED: AMPHOTERICIN B (CONVENTIONAL) 50 MG in WATER FOR INJECTION,STERILE 1,000 ML IR SCH (10:00)
[2017-07-16] MEDS: PANTOPRAZOLE 40 MG/PACK PACK GT SCH (10:11)
[2017-07-16] MEDS: [UNRECOGNIZED DRUG - OTHER] IR SCH (10:49)
[2017-07-16] MEDS: AMPHOTERICIN B 50 MG IR SCH (10:49)
[2017-07-16 12:00] VITALS: BP 98/55
[2017-07-16] MEDS: methylPREDNISolone SOD SUCC 40 MG/ML VIAL IV SCH ×2 (12:33→16:16)
[2017-07-16 16:00] VITALS: BP 108/58
[2017-07-16] MEDS: LACTOBACILLUS RHAMNOSUS GG 1 EACH CAP.SPRINK PO SCH (16:16)
--- NOTE | 2017-07-16 18:36 | NUR ---
RN NOTES PT REMAINED IN STABLE CONDITION THROUGHOUT THE SHIFT, ALL NEEDS MET. NO SIGNIFICANT CHANGES NOTED. WILL ENDORSE TO ONCOMING SHIFT.
--- NOTE | 2017-07-16 19:15 | NUR ---
RN NOTE RECEIVED PATIENT IN THE BED, NON-VERBAL, OBTUNDED, ON MECHANICAL VENTILATOR, NO RESPIRATORY DISTRESS NOTED, RECEIVED PATIENT WITH CONTINUES BLADDER IRRIGATION THAT STARTED ON 07/16/2016 AM SHIFT, STARTED BY CHARGE NURSE, GONZALEZ CATHETER IS INTACT, NO S/S OF PAIN OR DISCOMFORT NOTED, ALL SAFETY MEASURES TAKEN, WILL CONTINUE TO MONITOR
[2017-07-16 20:00] VITALS: BP 111/67
[2017-07-16] MEDS: DEXTROSE 50%-WATER 50 ML DISP.SYRIN IV PRN (23:27)
[2017-07-17] VITALS (7 sets, daily range): BP systolic 105–174; BP diastolic 66–98
[2017-07-17] MEDS: IPRATROPIUM NEB FS 0.5 MG/2.5 ML AMPUL.NEB NEB SCH ×4 (01:40→19:35)
[2017-07-17] MEDS: ALBUTEROL HALF STRENGTH 1.25 MG/3 ML VIAL.NEB NEB SCH ×4 (01:40→19:35)
[2017-07-17] MEDS: PIPERACILLIN /TAZOBACTAM 2.25 G in IV NS 0.9% 50 ML IV SCH ×3 (04:07→21:48)
[2017-07-17] MEDS: IV 1/2NS 1000 ML 1,000 ML IV PRN ×2 (04:11→18:43)
[2017-07-17] MEDS: GLUCERNA 1.2 1,000 ML BOTTLE NG PRN (04:12)
[2017-07-17] MEDS: BLOOD SUGAR DIAGNOSTIC 1 EACH STRIP IN SCH ×4 (06:20→23:33)
[2017-07-17 07:35] LABS: BASOPHILS % (AUTO) 0.4 % (0.0-2.0); EOSINOPHILS % (AUTO) 1.7 % (0.0-6.0); HEMATOCRIT 27 % (39-51); HEMOGLOBIN 9.5 g/dL (13.5-17.5); LYMPHOCYTES # (AUTO) 0.9 /CMM (0.8-4.8); LYMPHOCYTES % (AUTO) 8.7 % (20.0-44.0); MEAN CORPUSCULAR HGB CONC 35 g/dl (31.0-36.0); MEAN CORPUSCULAR VOLUME 88 fL (80-96); MONOCYTES # (AUTO) 0.8 /CMM (0.1-1.30); MONOCYTES % (AUTO) 7.6 % (2.0-12.0); NEUTROPHILS # (AUTO) 8.6 /CMM (1.8-8.9); NEUTROPHILS % (AUTO) 81.6 % (43.0-81.0); PLATELET COUNT (AUTO) 85 /CMM (150-450); RDW COEFFICIENT OF VARIATION 16.8 (11.5-15.0); RED BLOOD CELL COUNT(AUTO) 3.08 MIL/uL (4.5-6.0); WHITE BLOOD COUNT (AUTO) 10.6 K/uL (4.3-11.0)
[2017-07-17] MEDS ORDERED: VANCOMYCIN 500 MG in IV NS 0.9% 100 ML IV SCH (08:00)
[2017-07-17 08:17] LABS: ALANINE AMINOTRANSFERASE 22 U/L (12-78); ALBUMIN 1.5 g/dL (3.4-5.0); ALKALINE PHOSPHATASE 185 U/L (46-116); ASPARTATE AMINOTRANSFERASE 38 U/L (15-37); BILIRUBIN,TOTAL 0.4 mg/dL (0.2-1.0); CALCIUM, SERUM 8.3 mg/dL (8.5-10.1); CARBON DIOXIDE 20 mmol/L (21-32); CHLORIDE 103 mmol/L (98-107); CREATININE 5.5 mg/dL (0.6-1.3); GLUCOSE 83 mg/dL (74-106); MAGNESIUM 1.8 mg/dL (1.8-2.4); POTASSIUM 4.1 mmol/L (3.5-5.1); SODIUM SERUM 140 mmol/L (136-145); TOTAL PROTEIN, SERUM 5.7 g/dL (6.4-8.2)
[2017-07-17 08:18] LABS: UREA NITROGEN, BLOOD 157 mg/dL (7-18)
[2017-07-17] MEDS: INSULIN GLARGINE, 100 UNIT/ML CARTRIDGE SQ SCH (09:00)
--- NOTE | 2017-07-17 09:16 | NUR ---
RN NOTE PT LONG ACTING INSULIN HELD DUE TO LOW BLOOD GLUCOSE READINGS, LATEST ONE IS 83 MG/DL. IVF INFUSING, TUBE FEEDING RUNNING AT 40 ML/H.
[2017-07-17] MEDS: methylPREDNISolone SOD SUCC 40 MG/ML VIAL IV SCH ×3 (09:17→18:44)
[2017-07-17] MEDS: LEVETIRACETAM SOL (5 ML) 100 MG/ML UDC GT SCH ×2 (09:20→21:50)
[2017-07-17] MEDS: PANTOPRAZOLE 40 MG/PACK PACK GT SCH (09:20)
[2017-07-17] MEDS: LACTOBACILLUS RHAMNOSUS GG 1 EACH CAP.SPRINK PO SCH ×2 (09:20→18:43)
[2017-07-17] MEDS: ZINC SULFATE 220 MG CAPSULE GT SCH (09:20)
[2017-07-17] MEDS: ASPIRIN 81 MG TAB.CHEW GT SCH (09:21)
[2017-07-17] MEDS: CARVEDILOL 6.25 MG TABLET GT SCH ×2 (09:21→21:53)
[2017-07-17] MEDS: Z GUARD REMEDY 2 OZ OINT TP SCH (09:22)
[2017-07-17] MEDS: HYDROGEL DRESSING 90 GM TUBE TP SCH (09:22)
[2017-07-17 09:34] LABS: EOSINOPHILS % (MANUAL) 5 % (0-4); LYMPHOCYTES % (MANUAL) 8 % (16-48); MONOCYTES % (MANUAL) 7 % (0-11.0); NEUTROPHILS % (MANUAL) 80 (42-76)
[2017-07-17] MEDS: AMPHOTERICIN B 50 MG IR SCH (11:22)
[2017-07-17] MEDS: [UNRECOGNIZED DRUG - OTHER] IR SCH (11:22)
[2017-07-17] MEDS: INSULIN REGULAR, HUMAN 100 UNIT/ML 3 ML VIAL SQ PRN ×2 (18:48→23:35)
--- NOTE | 2017-07-17 19:00 | NUR ---
RN NOTE PT REMAINED STABLE, MIDLINE REMOVED DUE TO LEAKAGE, NEW IV IN R HAND 20 G, INTACT, CONTINUOUS BLADDER IRRIGATION IS RUNNING, URINE OUTPUT MONITORED, PT REMAINED EDEMATOUS, VS STABLE, NO FEVER.
--- NOTE | 2017-07-17 19:36 | NUR ---
RCVD TRACHED PT ON VENT WITH NOTED SETTINGS. VENT PLUGGED INTO RED OUTLET, VENT ALARM WORKING AND AUDIBLE. AMBU BAG AT BEDSIDE. BREATHING TX GIVEN , NO ADVERSE REACTION NOTED. SUCTIONED MODERATE AMOUNT OF YELLOW THICK SECRETIONS. NO RESPIRATORY DISTRESS NOTED AT THIS TIME. WILL CONTINUE TO MONITOR THE PT.
--- NOTE | 2017-07-17 20:00 | NUR ---
RN NOTE RECEIVED PATIENT IN THE BED, NON-VERBAL, OBTUNDED, ON MECHANICAL VENTILATOR, NO RESPIRATORY DISTRESS NOTED, RECEIVED PATIENT WITH CONTINUES BLADDER IRRIGATION, GONZALEZ CATHETER IS INTACT,NS INFUSING @100ML/HR IN R HAND. GT FEEDING INFUSING @50ML. NO S/S OF PAIN OR DISCOMFORT NOTED, ALL SAFETY MEASURES TAKEN, WILL CONTINUE TO MONITOR
[2017-07-18] VITALS (7 sets, daily range): BP systolic 92–147; BP diastolic 51–74
[2017-07-18] MEDS: IPRATROPIUM NEB FS 0.5 MG/2.5 ML AMPUL.NEB NEB SCH ×4 (01:44→20:06)
[2017-07-18] MEDS: ALBUTEROL HALF STRENGTH 1.25 MG/3 ML VIAL.NEB NEB SCH ×4 (01:44→20:06)
[2017-07-18] MEDS: GLUCERNA 1.2 1,000 ML BOTTLE NG PRN (05:09)
[2017-07-18] MEDS: BLOOD SUGAR DIAGNOSTIC 1 EACH STRIP IN SCH ×4 (05:11→23:33)
[2017-07-18] MEDS: PIPERACILLIN /TAZOBACTAM 2.25 G in IV NS 0.9% 50 ML IV SCH ×3 (05:11→20:54)
[2017-07-18] MEDS: INSULIN REGULAR, HUMAN 100 UNIT/ML 3 ML VIAL SQ PRN (05:11)
--- NOTE | 2017-07-18 06:17 | NUR ---
RN CLOSING NOTE NO ACUTE CHANGES ON SHIFT, PATIENT RESTED WELL AT NIGHT, NO RESPIRATORY DISTRESS NOTED, NO PAIN OR DISCOMFORT, SR ON THE MONITOR. GONZALEZ CATH IS INTACT WITH CONT BLADDER IRRIGATION , NO OBSTRUCTION NOTED, DRAINS URINE WELL. GT FEED ON GOING. IV FLUIDS INFUSING AT @125 ML/HR. ALL SAFETY MEASURES TAKEN
[2017-07-18 07:49] LABS: CALCIUM, SERUM 8.1 mg/dL (8.5-10.1); CARBON DIOXIDE 19 mmol/L (21-32); CHLORIDE 101 mmol/L (98-107); CREATININE 5.4 mg/dL (0.6-1.3); GLUCOSE 178 mg/dL (74-106); POTASSIUM 4.5 mmol/L (3.5-5.1); SODIUM SERUM 137 mmol/L (136-145)
[2017-07-18 07:53] LABS: BASOPHILS % (AUTO) 0.1 % (0.0-2.0); EOSINOPHILS % (AUTO) 0.2 % (0.0-6.0); HEMATOCRIT 25 % (39-51); HEMOGLOBIN 8.7 g/dL (13.5-17.5); LYMPHOCYTES # (AUTO) 0.5 /CMM (0.8-4.8); LYMPHOCYTES % (AUTO) 6.7 % (20.0-44.0); MEAN CORPUSCULAR HGB CONC 34 g/dl (31.0-36.0); MEAN CORPUSCULAR VOLUME 89 fL (80-96); MONOCYTES # (AUTO) 0.6 /CMM (0.1-1.30); MONOCYTES % (AUTO) 8.4 % (2.0-12.0); NEUTROPHILS % (AUTO) 84.6 % (43.0-81.0); PLATELET COUNT (AUTO) 78 /CMM (150-450); RDW COEFFICIENT OF VARIATION 17.5 (11.5-15.0); RED BLOOD CELL COUNT(AUTO) 2.84 MIL/uL (4.5-6.0); WHITE BLOOD COUNT (AUTO) 7.1 K/uL (4.3-11.0)
[2017-07-18 08:01] LABS: UREA NITROGEN, BLOOD 160 mg/dL (7-18)
[2017-07-18] MEDS ORDERED: FUROSEMIDE 40 MG/4 ML VIAL IV ONE (09:00)
[2017-07-18 09:21] LABS: LYMPHOCYTES % (MANUAL) 4 % (16-48); MONOCYTES % (MANUAL) 9 % (0-11.0); NEUTROPHILS % (MANUAL) 87 (42-76)
[2017-07-18] MEDS: IV 1/2NS 1000 ML 1,000 ML IV PRN ×2 (09:38→20:54)
[2017-07-18] MEDS: PANTOPRAZOLE 40 MG/PACK PACK GT SCH (09:40)
[2017-07-18] MEDS: ASPIRIN 81 MG TAB.CHEW GT SCH (09:40)
[2017-07-18] MEDS: ZINC SULFATE 220 MG CAPSULE GT SCH (09:40)
[2017-07-18] MEDS: methylPREDNISolone SOD SUCC 40 MG/ML VIAL IV SCH ×2 (09:40→18:43)
[2017-07-18] MEDS: LEVETIRACETAM SOL (5 ML) 100 MG/ML UDC GT SCH ×2 (09:40→20:48)
[2017-07-18] MEDS: CARVEDILOL 6.25 MG TABLET GT SCH ×2 (09:41→20:48)
[2017-07-18] MEDS: LACTOBACILLUS RHAMNOSUS GG 1 EACH CAP.SPRINK PO SCH ×2 (09:42→18:44)
[2017-07-18] MEDS: HYDROGEL DRESSING 90 GM TUBE TP SCH (09:44)
[2017-07-18] MEDS: Z GUARD REMEDY 2 OZ OINT TP SCH (09:44)
[2017-07-18] MEDS: INSULIN GLARGINE, 100 UNIT/ML CARTRIDGE SQ SCH (09:49)
[2017-07-18] MEDS: [UNRECOGNIZED DRUG - OTHER] IR SCH (12:07)
[2017-07-18] MEDS: AMPHOTERICIN B 50 MG IR SCH (12:07)
[2017-07-18] MEDS: DEXTROSE 50%-WATER 50 ML DISP.SYRIN IV PRN (18:46)
--- NOTE | 2017-07-18 19:00 | NUR ---
RN NOTE PT REMAINED STABLE, GETS TACHYPNEIC UPON TURNING PT OR BEING TOUCHED TO CHECK BG, G TUBE. IV FLUIDS RUNNING ORDERED, PT EDEMATOUS, DR TERRY AWARE, G TUBE FEEDING RUNNING ORDERED, BLADDER IRRIGATION IS RUNNING ORDER, URINE OUTPUT ADEQUATE. SAFETY MEASURES IMPLEMENTED, CALL LIGHT WITHIN REACH.
[2017-07-18] MEDS ORDERED: VANCOMYCIN 0.75 GM in IV D5W 250 ML IV SCH (20:00)
--- NOTE | 2017-07-18 21:54 | NUR ---
RN INITIAL NOTE RECEIVED PATIENT IN BED, NON-VERBAL, OBTUNDED, ON MECHANICAL VENTILATOR, NO RESPIRATORY DISTRESS NOTED, RECEIVED PATIENT WITH CONTINUES BLADDER IRRIGATION, GONZALEZ CATHETER IS INTACT,NS INFUSING @100ML/HR IN R HAND. GT FEEDING INFUSING @30ML. NO S/S OF PAIN OR DISCOMFORT NOTED, ALL SAFETY MEASURES TAKEN, WILL CONTINUE TO MONITOR
[2017-07-19] VITALS: BP 121/68
[2017-07-19] MEDS: IPRATROPIUM NEB FS 0.5 MG/2.5 ML AMPUL.NEB NEB SCH ×5 (01:28→23:29)
[2017-07-19] MEDS: ALBUTEROL HALF STRENGTH 1.25 MG/3 ML VIAL.NEB NEB SCH ×5 (01:28→23:29)
[2017-07-19 04:00] VITALS: BP 100/50
[2017-07-19] MEDS: BLOOD SUGAR DIAGNOSTIC 1 EACH STRIP IN SCH ×4 (06:01→23:56)
[2017-07-19] MEDS: PIPERACILLIN /TAZOBACTAM 2.25 G in IV NS 0.9% 50 ML IV SCH (06:03)
[2017-07-19] MEDS: GLUCERNA 1.2 1,000 ML BOTTLE NG PRN (06:05)
--- NOTE | 2017-07-19 06:41 | NUR ---
RN CLOSING NOTE NO ACUTE CHANGES ON SHIFT, PATIENT RESTED WELL AT NIGHT, NO RESPIRATORY DISTRESS NOTED, NO PAIN OR DISCOMFORT, SR ON THE MONITOR. GONZALEZ CATH IS INTACT WITH CONT BLADDER IRRIGATION , NO OBSTRUCTION NOTED, DRAINS URINE WELL. GT FEED ON GOING. IV FLUIDS INFUSING AT @100 ML/HR. ALL SAFETY MEASURES TAKEN
[2017-07-19 07:42] LABS: BASOPHILS % (AUTO) 0.1 % (0.0-2.0); HEMATOCRIT 27 % (39-51); HEMOGLOBIN 9.2 g/dL (13.5-17.5); LYMPHOCYTES # (AUTO) 0.6 /CMM (0.8-4.8); LYMPHOCYTES % (AUTO) 6.2 % (20.0-44.0); MEAN CORPUSCULAR HGB CONC 34 g/dl (31.0-36.0); MEAN CORPUSCULAR VOLUME 89 fL (80-96); MONOCYTES # (AUTO) 0.6 /CMM (0.1-1.30); MONOCYTES % (AUTO) 6.3 % (2.0-12.0); NEUTROPHILS % (AUTO) 87.4 % (43.0-81.0); PLATELET COUNT (AUTO) 108 /CMM (150-450); RDW COEFFICIENT OF VARIATION 18.5 (11.5-15.0); RED BLOOD CELL COUNT(AUTO) 3.07 MIL/uL (4.5-6.0); WHITE BLOOD COUNT (AUTO) 9.2 K/uL (4.3-11.0)
[2017-07-19 07:57] LABS: CALCIUM, SERUM 8.1 mg/dL (8.5-10.1); CARBON DIOXIDE 20 mmol/L (21-32); CHLORIDE 99 mmol/L (98-107); GLUCOSE 115 mg/dL (74-106); SODIUM SERUM 136 mmol/L (136-145)
[2017-07-19 08:00] VITALS: BP 100/50
[2017-07-19 08:02] LABS: UREA NITROGEN, BLOOD 143 mg/dL (7-18)
[2017-07-19] MEDS: INSULIN GLARGINE, 100 UNIT/ML CARTRIDGE SQ SCH (09:00)
[2017-07-19] MEDS: LEVETIRACETAM SOL (5 ML) 100 MG/ML UDC GT SCH ×2 (10:17→21:27)
[2017-07-19] MEDS: LACTOBACILLUS RHAMNOSUS GG 1 EACH CAP.SPRINK PO SCH ×2 (10:17→17:33)
[2017-07-19] MEDS: ASPIRIN 81 MG TAB.CHEW GT SCH (10:18)
[2017-07-19] MEDS: ZINC SULFATE 220 MG CAPSULE GT SCH (10:18)
[2017-07-19] MEDS: PANTOPRAZOLE 40 MG/PACK PACK GT SCH (10:18)
[2017-07-19] MEDS: methylPREDNISolone SOD SUCC 40 MG/ML VIAL IV SCH ×2 (10:18→17:32)
[2017-07-19] MEDS: CARVEDILOL 6.25 MG TABLET GT SCH ×2 (10:18→21:28)
[2017-07-19] MEDS: HYDROGEL DRESSING 90 GM TUBE TP SCH (10:20)
[2017-07-19] MEDS: Z GUARD REMEDY 2 OZ OINT TP SCH (10:20)
[2017-07-19 12:00] VITALS: BP 139/75
[2017-07-19] MEDS ORDERED: FUROSEMIDE 20 MG/2 ML VIAL IV ONE (12:30)
[2017-07-19] MEDS ORDERED: CEFEPIME 1 GM in IV D5W 50 ML IV SCH (13:00)
[2017-07-19] MEDS: AMPHOTERICIN B 50 MG IR SCH (15:06)
[2017-07-19] MEDS: [UNRECOGNIZED DRUG - OTHER] IR SCH (15:06)
[2017-07-19] MEDS: LORAZEPAM INJ 2 MG/ML VIAL IV PRN (15:06)
[2017-07-19] MEDS: CEFEPIME 2 GM in IV D5W 100 ML IV SCH (15:06)
[2017-07-19 16:00] VITALS: BP 149/80
--- NOTE | 2017-07-19 16:00 | NUR ---
RT NOTE: PATIENT RECEIVED WITH #8 COOK TRACH ON ESPRIT VENT. PEAK PRESSURES MAINTAIN BTW 40-50 ( AWARE). SUCTIONED AND LAVAGED MODERATE AMOUNT OF THICK RIVAS/BLOODY SECRETIONS. AMBU BAG AT [facility].
[2017-07-19] MEDS: INSULIN REGULAR, HUMAN 100 UNIT/ML 3 ML VIAL SQ PRN (17:36)
[2017-07-19] MEDS ORDERED: IV NS 0.9% 250 ML IV PRN (18:30)
--- NOTE | 2017-07-19 19:00 | NUR ---
RN NOTE PT HAD SOB EARLIER, STAT CXR DONE, CT OF CHEST DONE PER DR TERRY'S ORDER, AND DR TERRY NOTIFIED ABOUT THE RESULTS, HE ORDERED US GUIDED THORACENTESIS, IVF D/C'D, BLADDER IRRIGATION STILL RUNNING, BAG #3/DAY 3, WILL ENDORSE TO AIRCRAFT ENGINE INSTALLER NURSE.
[2017-07-19] MEDS ORDERED: LIDOCAINE 1%-EPI 1:100,000 20 ML VIAL TP ONE (19:30)
[2017-07-19 20:00] VITALS: BP_SYST 172; BP_DIAS 73; BP_DIAS 93
--- NOTE | 2017-07-19 20:00 | NUR ---
RN INITIAL NOTE RECEIVED PATIENT IN BED, NON-VERBAL, OBTUNDED, ON MECHANICAL VENTILATOR, NO RESPIRATORY DISTRESS NOTED, RECEIVED PATIENT WITH CONTINUES BLADDER IRRIGATION, GONZALEZ CATHETER IS INTACT,NS INFUSING TKO IN R HAND. GT FEEDING INFUSING @40ML. NO S/S OF PAIN OR DISCOMFORT NOTED, ALL SAFETY MEASURES TAKEN, WILL CONTINUE TO MONITOR
[2017-07-19 21:01] LABS: INR 1.16 (0.87-1.13)
[2017-07-20] VITALS: BP 187/90
[2017-07-20] MEDS: methylPREDNISolone SOD SUCC 40 MG/ML VIAL IV SCH ×4 (01:13→17:22)
[2017-07-20] MEDS: ALBUTEROL HALF STRENGTH 1.25 MG/3 ML VIAL.NEB NEB SCH ×6 (03:30→23:47)
[2017-07-20] MEDS: IPRATROPIUM NEB FS 0.5 MG/2.5 ML AMPUL.NEB NEB SCH ×6 (03:30→23:47)
[2017-07-20 04:00] VITALS: BP 187/90
[2017-07-20] MEDS: GLUCERNA 1.2 1,000 ML BOTTLE NG PRN (05:23)
[2017-07-20] MEDS: INSULIN REGULAR, HUMAN 100 UNIT/ML 3 ML VIAL SQ PRN ×3 (05:35→14:19)
[2017-07-20] MEDS: BLOOD SUGAR DIAGNOSTIC 1 EACH STRIP IN SCH ×4 (05:35→23:57)
--- NOTE | 2017-07-20 06:35 | NUR ---
RN CLOSING NOTE NO ACUTE CHANGES ON SHIFT, PATIENT RESTED WELL AT NIGHT, NO RESPIRATORY DISTRESS NOTED, NO PAIN OR DISCOMFORT, SR ON THE MONITOR. GONZALEZ CATH IS INTACT WITH CONT BLADDER IRRIGATION , NO OBSTRUCTION NOTED, DRAINS URINE WELL. GT FEED ON GOING. IV IN R FA PATENT AND INTACT WITH NS TKO . ALL SAFETY MEASURES TAKEN
[2017-07-20 08:00] VITALS: BP 131/87
--- NOTE | 2017-07-20 08:00 | NUR ---
TELE1/RN AM SHIFT INITIAL NOTES RECEIVED AT AWAKE IN BED, PT OPEN EYES, NON-VERBAL, NO GRIMACING NOTED, NO ACUTE CHANGE OF CONDITION OR SOB. ON VENTILATOR WITH RATES SET PRESCRIBED, SATURATING @ 97%, NOTED WITH RHONCHI LUNG SOUNDS, SUCTIONED FOR AIRWAY CLEARANCE. ON TELE MONITORING WITH SINUS RHYTHM, HR 91. IV SITE ON TKO, NO S/S OF INFECTION. GONZALEZ CATHETER INTACT NOTED WITH PALE YELLOW URINE OUTPUT, CONTINUOUS BLADDER IRRIGATION OF AMPHOTERICIN B @ 42CC/HR. ON GOING GTF @ 40CC/HR, PATENT, WITH NO GASTRIC RESIDUAL, FLUSHED. PT WITH GENERALIZED EDEMA, REDDENED SKIN. BLOOD GLUCOSE CHECKED, RESULT 149, TO BE COVERED WITH 14 UNITS OF LANTUS ORDERED, NO S/S OF HYPERGLYCEMIA. SCHEDULED AM MEDS TO BE GIVEN. PT IS SCHEDULED FOR ULTRASOUND GUIDED THORACENTESIS TODAY. CL WITHIN REACHED AND SAFETY MAINTAINED. ON GOING MONITORING.
[2017-07-20] MEDS: INSULIN GLARGINE, 100 UNIT/ML CARTRIDGE SQ SCH (09:37)
[2017-07-20] MEDS: CARVEDILOL 6.25 MG TABLET GT SCH ×2 (09:41→22:01)
[2017-07-20] MEDS: LEVETIRACETAM SOL (5 ML) 100 MG/ML UDC GT SCH ×2 (09:41→21:58)
[2017-07-20] MEDS: PANTOPRAZOLE 40 MG/PACK PACK GT SCH (09:42)
[2017-07-20] MEDS: ASPIRIN 81 MG TAB.CHEW GT SCH (09:42)
[2017-07-20] MEDS: HYDROGEL DRESSING 90 GM TUBE TP SCH (09:42)
[2017-07-20] MEDS: ZINC SULFATE 220 MG CAPSULE GT SCH (09:42)
[2017-07-20] MEDS: Z GUARD REMEDY 2 OZ OINT TP SCH (09:42)
[2017-07-20] MEDS: LACTOBACILLUS RHAMNOSUS GG 1 EACH CAP.SPRINK PO SCH ×2 (09:42→17:22)
[2017-07-20] MEDS: [UNRECOGNIZED DRUG - OTHER] IR SCH (10:37)
[2017-07-20] MEDS: AMPHOTERICIN B 50 MG IR SCH (10:37)
--- NOTE | 2017-07-20 10:50 | NUR ---
TELE1/RN DR. TERRY RECEIVED A PHONE CALL FROM DR. TERRY, UPDATED PT'S CONDITION. WITH VERBAL ORDERS RECEIVED FOR BLOOD DRAWS FOR TODAY AND TOMORROW IN AM WITH CHEST X-RAY. NOTED AND CARRIED.
--- NOTE | 2017-07-20 11:59 | NUR ---
07/20 @ 11:56 am, called Radiologist Dr. Dumas and left voice messge about thoracentesis procedure
[2017-07-20 12:00] VITALS: BP 108/79
[2017-07-20 12:06] LABS: HEMATOCRIT 26 % (39-51); HEMOGLOBIN 8.7 g/dL (13.5-17.5); LYMPHOCYTES # (AUTO) 0.1 /CMM (0.8-4.8); LYMPHOCYTES % (AUTO) 1.7 % (20.0-44.0); MEAN CORPUSCULAR HGB CONC 33 g/dl (31.0-36.0); MEAN CORPUSCULAR VOLUME 89 fL (80-96); MONOCYTES # (AUTO) 0.1 /CMM (0.1-1.30); MONOCYTES % (AUTO) 1.6 % (2.0-12.0); NEUTROPHILS # (AUTO) 6.8 /CMM (1.8-8.9); NEUTROPHILS % (AUTO) 96.7 % (43.0-81.0); PLATELET COUNT (AUTO) 123 /CMM (150-450); RDW COEFFICIENT OF VARIATION 17.9 (11.5-15.0); RED BLOOD CELL COUNT(AUTO) 2.98 MIL/uL (4.5-6.0)
[2017-07-20 12:26] LABS: ALANINE AMINOTRANSFERASE 27 U/L (12-78); ALBUMIN 1.8 g/dL (3.4-5.0); ALKALINE PHOSPHATASE 144 U/L (46-116); ASPARTATE AMINOTRANSFERASE 25 U/L (15-37); BILIRUBIN,TOTAL 0.4 mg/dL (0.2-1.0); CALCIUM, SERUM 8.3 mg/dL (8.5-10.1); CARBON DIOXIDE 20 mmol/L (21-32); CHLORIDE 99 mmol/L (98-107); CREATININE 5.1 mg/dL (0.6-1.3); GLUCOSE 132 mg/dL (74-106); POTASSIUM 4.4 mmol/L (3.5-5.1); SODIUM SERUM 136 mmol/L (136-145); TOTAL PROTEIN, SERUM 6.2 g/dL (6.4-8.2)
[2017-07-20 12:29] LABS: UREA NITROGEN, BLOOD 154 mg/dL (7-18)
[2017-07-20 12:46] LABS: PHOSPHORUS 8.4 mg/dL (2.5-4.9)
[2017-07-20] MEDS: CEFEPIME 2 GM in IV D5W 100 ML IV SCH (13:21)
[2017-07-20] MEDS: CALCIUM ACETATE 667 MG TABLET GT SCH ×2 (13:27→17:22)
--- NOTE | 2017-07-20 13:30 | NUR ---
TELE1/RN ULTRASOUND GUIDED THORACENTESIS ULTRASOUND GUIDED THORACENTESIS OF THE RIGHT LUNG BEING PERFORMED AT BEDSIDE BY DR. GRIER WITH MANAGEMENT TECHNICIAN, REMOVED 585 OF FLUID. PT TOLERATED PROCEDURE. SPECIMEN SENT TO LAB FOR ANALYSIS.
[2017-07-20 16:00] VITALS: BP 91/54
--- NOTE | 2017-07-20 17:01 | NUR ---
no vent changes made. Addendum: 07/20/17 at 1702 by ELIAS JAMIL RT Amended: Links added.
--- NOTE | 2017-07-20 17:30 | NUR ---
TELE1/RN AFTERNOON ROUNDS PM CARE PROVIDED, NO ACUTE CHANGE OF CONDITION. MONITORING CONTINUED.
[2017-07-20 20:00] VITALS: BP 119/64
--- NOTE | 2017-07-20 20:00 | NUR ---
RN INITIAL NOTES RECEIVED PATIENT IN BED, NON-VERBAL, OBTUNDED, ON MECHANICAL VENTILATOR, NO RESPIRATORY DISTRESS NOTED, RECEIVED PATIENT WITH CONTINUES BLADDER IRRIGATION, GONZALEZ CATHETER IS INTACT,NS INFUSING TKO IN R HAND. GT FEEDING INFUSING. NO S/S OF PAIN OR DISCOMFORT NOTED, ALL SAFETY MEASURES TAKEN, WILL CONTINUE TO MONITOR
--- NOTE | 2017-07-20 20:30 | NUR ---
TELE1/RN AM SHIFT END NOTES ALL NEEDS MET. NO ACUTE CHANGE OF CONDITION NOTED DURING THE SHIFT. IV SITE INTACT ON TKO, PATENT WITH NO S/S OF INFECTION, GONZALEZ CATHETER ON CONTINUOUS BLADDER IRRIGATION AND G-TUBE INTACT. PT ENDORSED TO PM NURSE TO CONTINUE CARE. CL WITHIN REACHED AND SAFETY MAINTAINED.
[2017-07-21] VITALS (9 sets, daily range): BP systolic 91–147; BP diastolic 48–91
[2017-07-21] MEDS: methylPREDNISolone SOD SUCC 40 MG/ML VIAL IV SCH ×4 (00:08→17:00)
[2017-07-21] MEDS: ALBUTEROL HALF STRENGTH 1.25 MG/3 ML VIAL.NEB NEB SCH ×4 (04:24→15:20)
[2017-07-21] MEDS: IPRATROPIUM NEB FS 0.5 MG/2.5 ML AMPUL.NEB NEB SCH ×4 (04:24→15:20)
[2017-07-21] MEDS: BLOOD SUGAR DIAGNOSTIC 1 EACH STRIP IN SCH ×3 (05:20→17:00)
[2017-07-21] MEDS: GLUCERNA 1.2 1,000 ML BOTTLE NG PRN (05:23)
[2017-07-21] MEDS: LORAZEPAM INJ 2 MG/ML VIAL IV PRN ×2 (05:56→18:32)
--- NOTE | 2017-07-21 07:02 | NUR ---
RN CLOSING NOTE NO ACUTE CHANGES ON SHIFT, SR ON THE MONITOR. GONZALEZ CATH IS INTACT WITH CONT BLADDER IRRIGATION , NO OBSTRUCTION NOTED, DRAINS URINE WELL. GT FEED ON GOING. IV IN R FA PATENT AND INTACT WITH NS TKO . ALL SAFETY MEASURES TAKEN
[2017-07-21 08:21] LABS: EOSINOPHILS % (AUTO) 0.1 % (0.0-6.0); HEMATOCRIT 24 % (39-51); HEMOGLOBIN 8.1 g/dL (13.5-17.5); LYMPHOCYTES # (AUTO) 0.2 /CMM (0.8-4.8); LYMPHOCYTES % (AUTO) 3.2 % (20.0-44.0); MEAN CORPUSCULAR HGB CONC 33 g/dl (31.0-36.0); MEAN CORPUSCULAR VOLUME 89 fL (80-96); MONOCYTES # (AUTO) 0.2 /CMM (0.1-1.30); MONOCYTES % (AUTO) 2.7 % (2.0-12.0); PLATELET COUNT (AUTO) 110 /CMM (150-450); RDW COEFFICIENT OF VARIATION 17.3 (11.5-15.0); RED BLOOD CELL COUNT(AUTO) 2.73 MIL/uL (4.5-6.0); WHITE BLOOD COUNT (AUTO) 7.4 K/uL (4.3-11.0)
[2017-07-21 08:43] LABS: CALCIUM, SERUM 7.6 mg/dL (8.5-10.1); CARBON DIOXIDE 18 mmol/L (21-32); CHLORIDE 100 mmol/L (98-107); CREATININE 4.9 mg/dL (0.6-1.3); GLUCOSE 103 mg/dL (74-106); POTASSIUM 4.7 mmol/L (3.5-5.1); SODIUM SERUM 136 mmol/L (136-145)
[2017-07-21 08:45] LABS: UREA NITROGEN, BLOOD 153 mg/dL (7-18)
[2017-07-21] MEDS: CALCIUM ACETATE 667 MG TABLET GT SCH ×3 (08:59→17:00)
[2017-07-21] MEDS: LACTOBACILLUS RHAMNOSUS GG 1 EACH CAP.SPRINK PO SCH ×2 (08:59→16:58)
[2017-07-21] MEDS: ASPIRIN 81 MG TAB.CHEW GT SCH (08:59)
[2017-07-21] MEDS: PANTOPRAZOLE 40 MG/PACK PACK GT SCH (08:59)
[2017-07-21] MEDS: LEVETIRACETAM SOL (5 ML) 100 MG/ML UDC GT SCH (08:59)
[2017-07-21] MEDS: ZINC SULFATE 220 MG CAPSULE GT SCH (08:59)
[2017-07-21] MEDS: HYDROGEL DRESSING 90 GM TUBE TP SCH (08:59)
[2017-07-21] MEDS: Z GUARD REMEDY 2 OZ OINT TP SCH (08:59)
[2017-07-21] MEDS: CARVEDILOL 6.25 MG TABLET GT SCH ×2 (09:00→11:58)
[2017-07-21] MEDS: INSULIN GLARGINE, 100 UNIT/ML CARTRIDGE SQ SCH (09:05)
--- NOTE | 2017-07-21 09:59 | NUR ---
WOUND CARE CONSULT: PT SEEN FOR RT ARM AND HANDS TODAY. RT ARM HAS LARGE AREA OF BRUISING WITH PITTING EDEMA 4+ TO BILATERAL ARMS AND ENTIRE BODY. SOME WEEPING EDEMA NOTED. BILATERAL PALMS OF HANDS HAVE SKIN TEARS WITH EDEMA. SPOKE WITH Jeremiah LYNCH NP FROM SURGICAL TEAM AND NEW ORDERS RECEIVED. RECOMMENDATIONS DISCUSSED WITH NURSING STAFF. WILL SEE MISAEL. IN AGREEMENT WITH PLAN OF CARE. Addendum: 07/21/17 at 1003 by ALCIRA PAL WNDNU Amended: Links added.
[2017-07-21] MEDS ORDERED: ALBU1.25 NEB (10:00)
[2017-07-21] MEDS ORDERED: PANT40SU2 GT (10:00)
[2017-07-21] MEDS ORDERED: BACITRACIN/POLYMYXIN B 15 GM TUBE TP SCH (10:00)
[2017-07-21] MEDS ORDERED: Insulin Glargine,Hum SQ (10:00)
[2017-07-21] MEDS ORDERED: IPRA0.2S9 NEB (10:00)
--- NOTE | 2017-07-21 10:04 | NUR ---
CPAS NOTE SPOKE TO DR. TERRY . ORDERED I UNIT PRBC BEFORE DISCHARGE TODAY. ORDERED F/ REPLACEMENT BEFORE DISCHARGE. Addendum: 07/21/17 at 1513 by FRANCOIS BA RN *GONZALEZ CATHETER REPLACEMENT BEFORE DISCHARGE.
[2017-07-21] MEDS: [UNRECOGNIZED DRUG - OTHER] IR SCH (10:38)
[2017-07-21] MEDS: AMPHOTERICIN B 50 MG IR SCH (10:38)
[2017-07-21] MEDS: INSULIN REGULAR, HUMAN 100 UNIT/ML 3 ML VIAL SQ PRN (11:10)
--- NOTE | 2017-07-21 15:13 | NUR ---
DIRECTOR WORKERS COMPENSATION NOTE PT RECEIVING BLOOD TRANSFUSION. TOLERATING WELL NO S/S OF TRANSFUSION REACTION. WILL CONTINUE TO MONITOR CLOSELY.
--- NOTE | 2017-07-21 16:53 | NUR ---
SUPERCHARGER REPAIR SUPERVISOR NOTE TRANSFUSION DONE . REPLACED GONZALEZ CATHETER. B/P 102/79
--- NOTE | 2017-07-21 19:02 | NUR ---
AEROBICS INSTRUCTORDIRECTOR OF PHYSICIAN PRACTICES NOTE PT DISCHARGED TO [facility] CALLED AND GAVE REPORT @ 1730 TO AMARILYS BEDOYA. PT MEDICALLY STABLE. ALL ORDERS CARRIED OUT. DC INSTRUCTIONS GIVEN TO EMT. IV REMOVED AND ID BAND REMOVED. TELE BOX REMOVED. PT TRANSPORTED VIA AMBULANCE. SIGNIFICANT OTHER AWARE OF TRANSFER. PHOTOS TAKEN THIS MORNING AND PLACED IN CHART. REPORT GIVEN TO EMT AND RT.
== END 2017-07-21 18:57 | DRG 870 ==
LOC: ER 22:53 → TELE-TD 07-15 02:43 → MEDSG1 07-17 10:57 → TELE1 07-17 11:31
PROVIDERS: ADMIT Internal Medicine; ATTEND Internal Medicine
PROC: 5A1955Z Respiratory Ventilation, Greater than 96 Consecutive Hours (ICD-10-PCS; principal; 2017-07-15)
PROC: 0W993ZZ Drainage of Right Pleural Cavity, Percutaneous Approach (ICD-10-PCS; 2017-07-20)
PROC: 30233N1 Transfusion of Nonautologous Red Blood Cells into Peripheral Vein, Percutaneous Approach (ICD-10-PCS; 2017-07-21)
DX: A41.9 Sepsis, unspecified organism (principal); J69.0 Pneumonitis due to inhalation of food and vomit; J96.21 Acute and chronic respiratory failure with hypoxia; G93.1 Anoxic brain damage, not elsewhere classified; N17.9 Acute kidney failure, unspecified; Z99.11 Dependence on respirator [ventilator] status; J90 Pleural effusion, not elsewhere classified; Z93.0 Tracheostomy status; J96.22 Acute and chronic respiratory failure with hypercapnia; B37.49 Other urogenital candidiasis; J44.1 Chronic obstructive pulmonary disease with (acute) exacerbation; J44.0 Chronic obstructive pulmonary disease with (acute) lower respiratory infection; J98.11 Atelectasis; R13.10 Dysphagia, unspecified; E11.22 Type 2 diabetes mellitus with diabetic chronic kidney disease; E88.09 Other disorders of plasma-protein metabolism, not elsewhere classified; D69.6 Thrombocytopenia, unspecified; D72.829 Elevated white blood cell count, unspecified; I12.9 Hypertensive chronic kidney disease with stage 1 through stage 4 chronic kidney disease, or unspecified chronic kidney disease; Z93.1 Gastrostomy status; J44.9 Chronic obstructive pulmonary disease, unspecified; N18.9 Chronic kidney disease, unspecified; E86.0 Dehydration; I25.10 Atherosclerotic heart disease of native coronary artery without angina pectoris; K21.9 Gastro-esophageal reflux disease without esophagitis; D64.9 Anemia, unspecified; R33.9 Retention of urine, unspecified; R19.5 Other fecal abnormalities; Z74.01 Bed confinement status; Z87.891 Personal history of nicotine dependence; T14.8XXA Other injury of unspecified body region, initial encounter; X58.XXXA Exposure to other specified factors, initial encounter; Y93.9 Activity, unspecified; Y92.129 Unspecified place in nursing home as the place of occurrence of the external cause; E87.5 Hyperkalemia; Z86.74 Personal history of sudden cardiac arrest; E78.5 Hyperlipidemia, unspecified; Z95.1 Presence of aortocoronary bypass graft; B96.5 Pseudomonas (aeruginosa) (mallei) (pseudomallei) as the cause of diseases classified elsewhere; Z79.4 Long term (current) use of insulin
CPT/HCPCS: 31720; 36415; 36600; 70450-TC; 71045-TC; 71250-TC; 76770-TC; 76942-TC; 78580; 80048-TC; 80053-TC; 80076-TC; 80202-TC; 82272-TC; 82803-TC; 82962-TC; 83605-TC; 83735-TC; 83880; 84100-TC; 84484-TC; 85025-TC; 85378-TC; 85610-TC; 86850-TC; 86921-TC; 87070-TC; 87081-TC; 87086-TC; 87186-TC; 87400; 89051-TC; 93970-TC; 94002-TC; 94003-TC; 94760-TC; 99082-TC; A4216; A4217; A4606; A6248; A6253; A6403; A9540; J0285; J0692; J0696; J1815; J1940; J1953; J2060; J2543; J2920; J2930; J3370; J3490; J7030; J7050; J7060; P9016-BL; Z7610

== ENCOUNTER 2017-07-24 18:52 | Inpatient (IN) | payer OTHER ==
[2017-07-24] VITALS (8 sets, daily range): BP systolic 96–156; BP diastolic 45–101
[~2017-07-24] VITALS: Ht 177.8 cm; Wt 76.7 kg
[~2017-07-24 18:52] MED LIST changes: -ACET-2605 GT; +ALBU1.25 NEB; -ALBU2.5V13 IH; -ALBU2.5V13 NEB; -AMIN30LI4 GT; -ASCO-340 GT; -ATOR20TA GT; -CALC-261 GT; -CRAN3875 GT; -DOCU50LI GT; -FAMO20TA8 GT; -FERR325T23 GT; +INSU100V9 IJ; -IPRA0.2S9 IH; +IPRA0.2S9 NEB; +Insulin Glargine,Hum SQ; +LEVE500T9 GT; -MAGN400O6 GT; -METH4TAB17 GT; -MULT-447 GT; +PANT40SU2 GT; -SACC250C GT; -SENN-18 GT; -VALS40TA4 GT
--- NOTE | 2017-07-24 18:55 | NUR ---
DB RA FROM SNF,LOW O2SAT(82-83%). PATIENT VENT/TRACH DEPENDENT. ARRIVED ON AMBUBAG, 02 SATURATION 100%. NON VERBAL, GTUBE INTACT. GONZALEZ IN PLACE. NAD, SAFETY AND COMFORT MEASURES IN PLACE. AWAITING MD ORDERS.
--- NOTE | 2017-07-24 19:05 | NUR ---
NEW IV STARTED ON RIGHT HAND, 20G. UNABLE TO DRAW BLOOD FROM IV, LAB INFORMED.
--- NOTE | 2017-07-24 19:10 | NUR ---
URINE OBTAINED AND SENT TO LAB.
--- NOTE | 2017-07-24 19:15 | NUR ---
Patient was received in ER for low O2 from a sub-acute facility with a Cook trach #8. Patient placed on vent per MD with settings of AC 22, 500 Vt, 100%, +5. Will continue to monitor progress. Addendum: 07/24/17 at 2252 by JUAN CARLOS RODRIGUEZ RT Amended: Links added.
[2017-07-24 19:23] LABS: APPEARANCE,URINE Clear (CLEAR); BILIRUBIN,URINE Negative (NEGATIVE); BLOOD, URINE Moderate Ery/uL (NEGATIVE); COLOR,URINE Yellow (YELLOW); KETONES,URINE Negative (NEGATIVE); LEUKOCYTE ESTERASE ,URINE Small (NEGATIVE); NITRITE, URINE Negative (NEGATIVE); PH,URINE 6.5 (5.0-8.0); PROTEIN,URINE 100 mg/dl (NEGATIVE); UGLUCOSE Negative (NEGATIVE); UROBILINOGEN,URINE 0.2 EU/dL (0.2)
[2017-07-24 19:28] LABS: BASOPHILS # (AUTO) 0.2 /CMM (0.0-0.2); BASOPHILS % (AUTO) 2.3 % (0.0-2.0); EOSINOPHILS % (AUTO) 0.9 % (0.0-6.0); HEMATOCRIT 32 % (39-51); HEMOGLOBIN 10.7 g/dL (13.5-17.5); LYMPHOCYTES # (AUTO) 0.4 /CMM (0.8-4.8); LYMPHOCYTES % (AUTO) 5.3 % (20.0-44.0); MEAN CORPUSCULAR HGB CONC 34 g/dl (31.0-36.0); MEAN CORPUSCULAR VOLUME 88 fL (80-96); MONOCYTES # (AUTO) 0.4 /CMM (0.1-1.30); MONOCYTES % (AUTO) 4.7 % (2.0-12.0); NEUTROPHILS # (AUTO) 7.3 /CMM (1.8-8.9); NEUTROPHILS % (AUTO) 86.8 % (43.0-81.0); PLATELET COUNT (AUTO) 138 /CMM (150-450); RDW COEFFICIENT OF VARIATION 16.7 (11.5-15.0); RED BLOOD CELL COUNT(AUTO) 3.63 MIL/uL (4.5-6.0); WHITE BLOOD COUNT (AUTO) 8.4 K/uL (4.3-11.0)
--- NOTE | 2017-07-24 19:35 | NUR ---
REPORT GIVEN TO KENNY BEDOYA FOR SUMMER.
[2017-07-24 19:42] LABS: BACTERIA,URINE 1+ /HPF (None Seen); RBC,URINE 21-50 /HPF (0-2); SQUAMOUS EPITHELIAL CELL,UR Few /HPF (None Seen)
[2017-07-24 19:43] LABS: INR 1.13 (0.85-1.15)
[2017-07-24 19:46] LABS: ALANINE AMINOTRANSFERASE 26 U/L (12-78); ALBUMIN 1.7 g/dL (3.4-5.0); ALKALINE PHOSPHATASE 179 U/L (46-116); ASPARTATE AMINOTRANSFERASE 36 U/L (15-37); BILIRUBIN,DIRECT 0.2 mg/dL (0.0-0.2); BILIRUBIN,TOTAL 0.4 mg/dL (0.2-1.0); CALCIUM, SERUM 7.6 mg/dL (8.5-10.1); CARBON DIOXIDE 20 mmol/L (21-32); CHLORIDE 101 mmol/L (98-107); CREATININE 4.5 mg/dL (0.6-1.3); GLUCOSE 118 mg/dL (74-106); POTASSIUM 5.5 mmol/L (3.5-5.1); SODIUM SERUM 137 mmol/L (136-145); TOTAL PROTEIN, SERUM 5.7 g/dL (6.4-8.2)
[2017-07-24 19:47] LABS: TROPONIN I 0.227 ng/mL (0.00-0.056)
--- NOTE | 2017-07-24 19:50 | NUR ---
XR AT BEDSIDE.
[2017-07-24 19:51] LABS: UREA NITROGEN, BLOOD 186 mg/dL (7-18)
[2017-07-24] MEDS ORDERED: IV NS 0.9% 1,000 ML IV ONE ×2 (20:00)
--- NOTE | 2017-07-24 21:16 | NUR ---
REPORT GIVEN TO SANTOS BEDOYA FOR SUMMER.
--- NOTE | 2017-07-24 21:40 | NUR ---
OPEN DEVELOPER OPERATOR RCD PT FROM ER NO ADMISSION ORDERS RCD.
--- NOTE | 2017-07-24 21:48 | NUR ---
TRANSFERRED PATIENT TO ICU BED VIA ALS PROTOCOL, NO INCIDENT NOTED.
--- NOTE | 2017-07-24 22:05 | NUR ---
GUN STOCK MAKER CALL PLACED TO DR TERRY FOR ADMISSION ORDERS. PER SERVICE THEY WILL TRY TO REACH HIM.
[2017-07-24] MEDS ORDERED: ACETAMINOPHEN 325 MG TABLET MC PRN (22:30)
[2017-07-24] MEDS ORDERED: IV NS 0.9% 500 ML IV ONE (22:30)
[2017-07-24] MEDS ORDERED: NOREPINEPHRINE 8 MG in IV D5W 500 ML IV PRN (22:30)
[2017-07-24] MEDS ORDERED: VANCOMYCIN 1 GM VIAL ONE (22:41)
[2017-07-24] MEDS ORDERED: NS 0.9% IV ONE (23:00)
[2017-07-24] MEDS ORDERED: VANCOMYCIN IV ONE (23:00)
[2017-07-24] MEDS: ALBUTEROL HALF STRENGTH 1.25 MG/3 ML VIAL.NEB NEB SCH (23:45)
[2017-07-24] MEDS: IPRATROPIUM NEB FS 0.5 MG/2.5 ML AMPUL.NEB NEB SCH (23:45)
[2017-07-25] VITALS (51 sets, daily range): BP systolic 61–191; BP diastolic 35–106
[2017-07-25] MEDS ORDERED: BLOOD SUGAR DIAGNOSTIC 1 EACH STRIP IN SCH
[2017-07-25] MEDS: LORAZEPAM INJ 2 MG/ML VIAL IV PRN ×2 (01:35→21:47)
--- NOTE | 2017-07-25 01:45 | NUR ---
HOME TEACHING GRADES 7 AND 8 TEACHER PT CONVERTED TO AFIB; EKG DONE. DR TERRY NOTIFIED. CONTINUE TO MONITOR.
[2017-07-25] MEDS: GLUCERNA 1.2 1,000 ML BOTTLE NG PRN (03:30)
[2017-07-25] MEDS: IPRATROPIUM NEB FS 0.5 MG/2.5 ML AMPUL.NEB NEB SCH ×6 (04:16→23:45)
[2017-07-25] MEDS: ALBUTEROL HALF STRENGTH 1.25 MG/3 ML VIAL.NEB NEB SCH ×6 (04:16→23:45)
[2017-07-25 05:05] LABS: BASOPHILS % (AUTO) 0.1 % (0.0-2.0); EOSINOPHILS % (AUTO) 2.4 % (0.0-6.0); HEMATOCRIT 26 % (39-51); HEMOGLOBIN 8.8 g/dL (13.5-17.5); LYMPHOCYTES # (AUTO) 0.5 /CMM (0.8-4.8); LYMPHOCYTES % (AUTO) 6.1 % (20.0-44.0); MEAN CORPUSCULAR HGB CONC 34 g/dl (31.0-36.0); MEAN CORPUSCULAR VOLUME 89 fL (80-96); MONOCYTES # (AUTO) 0.8 /CMM (0.1-1.30); MONOCYTES % (AUTO) 9.9 % (2.0-12.0); NEUTROPHILS # (AUTO) 6.3 /CMM (1.8-8.9); NEUTROPHILS % (AUTO) 81.5 % (43.0-81.0); PLATELET COUNT (AUTO) 118 /CMM (150-450); RDW COEFFICIENT OF VARIATION 17.8 (11.5-15.0); RED BLOOD CELL COUNT(AUTO) 2.97 MIL/uL (4.5-6.0); WHITE BLOOD COUNT (AUTO) 7.7 K/uL (4.3-11.0)
[2017-07-25 05:09] LABS: ALANINE AMINOTRANSFERASE 26 U/L (12-78); ALBUMIN 1.5 g/dL (3.4-5.0); ALKALINE PHOSPHATASE 135 U/L (46-116); ASPARTATE AMINOTRANSFERASE 30 U/L (15-37); BILIRUBIN,TOTAL 0.5 mg/dL (0.2-1.0); CALCIUM, SERUM 7.6 mg/dL (8.5-10.1); CARBON DIOXIDE 21 mmol/L (21-32); CHLORIDE 104 mmol/L (98-107); CREATININE 4.3 mg/dL (0.6-1.3); GLUCOSE 82 mg/dL (74-106); POTASSIUM 5.1 mmol/L (3.5-5.1); SODIUM SERUM 141 mmol/L (136-145); UREA NITROGEN, BLOOD 175 mg/dL (7-18)
[2017-07-25] MEDS ORDERED: INSULIN REGULAR, HUMAN 100 UNIT/ML 3 ML VIAL SQ PRN (06:00)
[2017-07-25] MEDS: BLOOD SUGAR DIAGNOSTIC 1 EACH STRIP IN SCH ×3 (06:17→17:21)
[2017-07-25 06:20] LABS: ABG BASE EXCESS -9.3 mmol/L; ABG OXYGEN SATURATION 99.2 % (92.0-98.5); ABG PCO2 48.5 mmHg (35.0-45.0); AaDO2 104.5 mmHg; COHb 0.5 % (0.5-1.5); MetHb 0.5 % (0.0-1.5); O2Hb 98.2 % (94.0-97.0); PEEP,BG 5 cm H2O; SITE, ABG Left Radial; VENT MODE, BG ac 22/500/%5/100%; VT, ABG 500 mL
[2017-07-25] MEDS ORDERED: FEE PK DOSING 1 MIN EA MC ONE (07:49)
[2017-07-25 08:29] LABS: ABG BASE EXCESS -5.6 mmol/L; ABG PCO2 36.8 mmHg (35.0-45.0); ABG PH 7.341 (7.350-7.450); ABG PO2 58.8 mmHg (75.0-100.0); AaDO2 184.1 mmHg; COHb 0.7 % (0.5-1.5); O2Hb 87.1 % (94.0-97.0); PEEP,BG 5 cm H2O; SITE, ABG Right Radial; VENT MODE, BG AC 22 500 40% +5; VT, ABG 500 mL
[2017-07-25] MEDS ORDERED: MEROPENEM 500 MG in IV NS 0.9% 100 ML IV SCH (09:00)
[2017-07-25] MEDS ORDERED: CARVEDILOL 6.25 MG TABLET GT SCH (09:00)
[2017-07-25] MEDS: INSULIN GLARGINE, 100 UNIT/ML CARTRIDGE SQ SCH (09:00)
[2017-07-25] MEDS: CARVEDILOL 6.25 MG TABLET GT SCH ×2 (09:00→21:30)
[2017-07-25] MEDS: PANTOPRAZOLE 40 MG/PACK PACK GT SCH (10:08)
[2017-07-25] MEDS: methylPREDNISolone SOD SUCC 40 MG/ML VIAL IV SCH ×3 (10:09→17:21)
[2017-07-25] MEDS: LEVETIRACETAM SOL (5 ML) 100 MG/ML UDC GT SCH ×2 (10:09→21:31)
[2017-07-25] MEDS: ASPIRIN 81 MG TAB.CHEW GT SCH (10:10)
[2017-07-25] MEDS: ZINC SULFATE 220 MG CAPSULE GT SCH (10:10)
--- NOTE | 2017-07-25 10:10 | NUR ---
WOUND CARE CONSULT: PT PRESENTS WITH MULTIPLE WOUNDS AND SKIN ISSUES INCLUDING SKIN CONDITION TO RT THIGH AND LEFT SHOULDER AREA WITH THICKENED SCALY SKIN, 4+ PITTING EDEMA WITH WEEPING (GENERALIZED), DEEP TISSUE INJURIES TO BACK, STAGE 3 ULCER TO SACRUM, BILATERAL PALM WOUNDS, SKIN TEAR AND RAISED LESION TO UPPER EXTREMITIES, PENIS AND SACRAL WOUNDS AND ESCHARS TO RT LOWER LEG, ALL PRESENT ON ADMISSION. PT HAS MULTIPLE ORGAN FAILURE INCLUDING RENAL, RESPIRATORY AND SKIN FAILURE. ALL SKIN PROTECTION AND WOUND CARE RECOMMENDATIONS DISCUSSED WITH NURSING STAFF. RECOMMEND SURGICAL CONSULT/FOLLOWUP. FIRST STEP MATTRESS TO BE PLACED. MD IN AGREEMENT WITH PLAN OF CARE. CURRENT CALDERON SCORE IS 11. Addendum: 07/25/17 at 1014 by ALCIRA PAL WNDNU Amended: Links added.
[2017-07-25] MEDS: FUROSEMIDE 40 MG/4 ML VIAL IV SCH (10:23)
[2017-07-25] MEDS ORDERED: Z GUARD REMEDY 2 OZ OINT TP PRN (10:30)
[2017-07-25] MEDS ORDERED: HYDROGEL DRESSING 90 GM TUBE TP PRN (10:30)
[2017-07-25] MEDS ORDERED: LIDOCAINE HCL/PF 1% 30 ML SDV ONE (10:53)
--- NOTE | 2017-07-25 11:01 | NUR ---
CALLED AURELIANO HORNE REGARDING CONSENT FOR US GUIDED THORACENTESIS, HAS NOT BEEN SIGNED OF 10:55 AM
--- NOTE | 2017-07-25 12:26 | NUR ---
PER ORDERING PHYSICIAN, DR. TERRY, THORACENTESIS PROCEDURE ON HOLD DUE TO UNSTABLE BP. WILL FOLLOW-UP LATER TODAY.
--- NOTE | 2017-07-25 12:30 | NUR ---
RT NOTE PT IN STABLE CONDITION. PT MECHANICALLY VENTILATED VIA COOK 8 TRACHEOSTOMY TUBE. TRACH MIDLINE AND SECURE. CUFF INFLATED BY SERVICE LINE COORDINATOR. SETTINGS PRESCRIBED. BILATERAL CHEST RISE NOTED. THIN RIVAS SECRETIONS FOUND UPON SUCTION. DIMINISHED BREATH SOUNDS HEARD UPON AUSCULTATION. ALARMS SET PER PROTOCOL AND AUDIBLE. VENT PLUGGED IN TO RED OUTLET. AMBU BAG AT BED SIDE. NO DISTRESS NOTED AT MOMENT. WILL CONTINUE TO MONITOR.
--- NOTE | 2017-07-25 12:30 | NUR ---
RN NOTE SPOKE WITH DR TERRY ABOUT BP OF THE PT BEING UP AND DOWN FROM 130S TO 60S/80S AND ASKED HIM WHETHER TO PROCEED WITH THORACENTESIS, HE ANSWERED TO HOLD FOR NOW AND MONITOR BP.
[2017-07-25] MEDS: HYDROGEL DRESSING 90 GM TUBE TP SCH (12:57)
[2017-07-25] MEDS: Z GUARD REMEDY 2 OZ OINT TP SCH (12:57)
[2017-07-25] MEDS: BACITRACIN/POLYMYXIN B 15 GM TUBE TP SCH (12:57)
[2017-07-25] MEDS: SILVER SULFADIAZINE CREAM 25 GM TUBE TP SCH (12:58)
--- NOTE | 2017-07-25 15:38 | NUR ---
Patient is trach/vent dependent, resident of [facility] [phone]. He is bedfast most of the time, requires total assist with adl's. Current plan is to return to [place] [phone] once d/c. Addendum: 07/25/17 at 1538 by ROBERTO ROWLAND RN Amended: Links added.
[2017-07-25] MEDS: INSULIN REGULAR, HUMAN 100 UNIT/ML 10 ML VIAL SQ SCH (18:00)
--- NOTE | 2017-07-25 19:00 | NUR ---
AURELIANO MICHAEL PT WAS SUPPOSED TO GET US GUIDED THORACENTESIS, BUT PER TO HOLD THORACENTESIS FOR NOW. DR HYMAN AWARE. Addendum: 07/25/17 at 2046 by MIKA RAMIREZ RN PER DR EWING TO HOLD THORACENTESIS.
--- NOTE | 2017-07-25 19:00 | NUR ---
POLE LIFT OPERATOR NOTES RECEIVED PATIENT ,WITH TRACHEOSTOMY TO THE VENTILATOR ON AC MODE.OBTUNDED,RESPONDS TO PAIN,WITHDRAWS TO PAIN,SLIGHTLY OPENS EYES, +GAG AND COUGH.nOT IN DISTRESS,RESPIRATION ,REGULAR AND NON LABORED.G TUBE WITH ON GOING FEEDING,PICC LINE RUDI ,WITH SLIGHT BLEEDING NOTED ON INSERTION SITE ,DRESING INTACT.COMFORT CARE DONE.SKIN VERY FRAGILE AND REDNESS ALL OVER,
--- NOTE | 2017-07-25 21:30 | NUR ---
HOGSHEAD BUILDER NOTES PATIENT A LITTLE AGITATED,WITH LABORED BREATHING,AND CLENCHING HANDS AND STIFF EXTREMITIES,. HEART RATE IN THE 100'S AND BP READINGS HIGH. 2147 STILL WITH LABORED BREATHING AND AGITATED. ATIVAN IV GIVEN.
[2017-07-25] MEDS: MUPIROCIN OINT 2% 22 GM TUBE SCH (21:32)
--- NOTE | 2017-07-25 21:54 | NUR ---
PT RECEIVED TRACHED COOK 8 ON VENT. NO RESP DISTRESS NOTED. PT TOLERATING VENT SETTINGS. SX'D FOR MOD AMT OF THICK YELLOW SECRETIONS. VENT ALARMS SET AND AUDIBLE. AMBU BAG AT BEDSIDE. VENT PLUGGED INTO RED OUTLET. WILL CONTINUE TO MONITOR. Addendum: 07/25/17 at 2203 by ANTHONY JALLOH RT Amended: Links added.
[2017-07-26] VITALS (51 sets, daily range): BP systolic 113–197; BP diastolic 53–149
--- NOTE | 2017-07-26 | NUR ---
LASTING FLOORWORKER NOTES REMAINS STABLE,ON AND OFF GETS AGITATED AND RESISTING WHEN TOUCHED OR MOVED.NOT IN ANY DISTRESS,CONTINUE COMFORT CARE. 0400 AM CARE DONE.BOTH UPPER EXTREMITIES WEEPING A LOT WITH CLEAR YELLOW FLUID.PICC LINE DRESSING CHANGED.
[2017-07-26] MEDS: BLOOD SUGAR DIAGNOSTIC 1 EACH STRIP IN SCH ×5 (00:07→23:48)
[2017-07-26] MEDS: INSULIN REGULAR, HUMAN 100 UNIT/ML 10 ML VIAL SQ SCH ×5 (00:13→23:50)
[2017-07-26] MEDS: GLUCERNA 1.2 1,000 ML BOTTLE NG PRN (02:28)
[2017-07-26] MEDS: ALBUTEROL HALF STRENGTH 1.25 MG/3 ML VIAL.NEB NEB SCH ×5 (03:43→19:27)
[2017-07-26] MEDS: IPRATROPIUM NEB FS 0.5 MG/2.5 ML AMPUL.NEB NEB SCH ×5 (03:43→19:27)
[2017-07-26 05:00] LABS: HEMATOCRIT 30 % (39-51); HEMOGLOBIN 10.2 g/dL (13.5-17.5); LYMPHOCYTES # (AUTO) 0.2 /CMM (0.8-4.8); LYMPHOCYTES % (AUTO) 2.6 % (20.0-44.0); MEAN CORPUSCULAR HGB CONC 34 g/dl (31.0-36.0); MEAN CORPUSCULAR VOLUME 88 fL (80-96); MONOCYTES # (AUTO) 0.8 /CMM (0.1-1.30); MONOCYTES % (AUTO) 9.9 % (2.0-12.0); NEUTROPHILS # (AUTO) 6.7 /CMM (1.8-8.9); NEUTROPHILS % (AUTO) 87.5 % (43.0-81.0); PLATELET COUNT (AUTO) 132 /CMM (150-450); RDW COEFFICIENT OF VARIATION 17.5 (11.5-15.0); RED BLOOD CELL COUNT(AUTO) 3.43 MIL/uL (4.5-6.0); WHITE BLOOD COUNT (AUTO) 7.6 K/uL (4.3-11.0)
[2017-07-26 05:18] LABS: CALCIUM, SERUM 8.1 mg/dL (8.5-10.1); CARBON DIOXIDE 20 mmol/L (21-32); CHLORIDE 102 mmol/L (98-107); CREATININE 4.5 mg/dL (0.6-1.3); GLUCOSE 213 mg/dL (74-106); POTASSIUM 5.4 mmol/L (3.5-5.1); SODIUM SERUM 139 mmol/L (136-145)
[2017-07-26 05:29] LABS: UREA NITROGEN, BLOOD 181 mg/dL (7-18)
--- NOTE | 2017-07-26 07:05 | NUR ---
WOOD PANEL INSPECTOR NOTES STATUS UNCHANGED,REPORT GIVEN TO KEZIA BEDOYA.
[2017-07-26 08:53] LABS: ABG BASE EXCESS -9.4 mmol/L; ABG OXYGEN SATURATION 98.2 % (92.0-98.5); ABG PCO2 48.4 mmHg (35.0-45.0); ABG PO2 169.9 mmHg (75.0-100.0); AaDO2 132.2 mmHg; COHb 0.3 % (0.5-1.5); MetHb 1.1 % (0.0-1.5); O2Hb 96.8 % (94.0-97.0); PEEP,BG 5 cm H2O; SITE, ABG Right Radial; VT, ABG 500 mL
[2017-07-26] MEDS: methylPREDNISolone SOD SUCC 40 MG/ML VIAL IV SCH ×3 (09:14→17:37)
[2017-07-26] MEDS: LORAZEPAM INJ 2 MG/ML VIAL IV PRN ×2 (09:14→17:37)
[2017-07-26] MEDS: FUROSEMIDE 40 MG/4 ML VIAL IV SCH (09:14)
[2017-07-26] MEDS: CARVEDILOL 6.25 MG TABLET GT SCH ×2 (09:15→21:10)
[2017-07-26] MEDS: ASPIRIN 81 MG TAB.CHEW GT SCH (09:15)
[2017-07-26] MEDS: PANTOPRAZOLE 40 MG/PACK PACK GT SCH (09:15)
[2017-07-26] MEDS: LEVETIRACETAM SOL (5 ML) 100 MG/ML UDC GT SCH ×2 (09:15→21:10)
[2017-07-26] MEDS: ZINC SULFATE 220 MG CAPSULE GT SCH (09:15)
[2017-07-26] MEDS: SILVER SULFADIAZINE CREAM 25 GM TUBE TP SCH (09:16)
[2017-07-26] MEDS: MUPIROCIN OINT 2% 22 GM TUBE SCH ×2 (09:16→21:12)
[2017-07-26] MEDS: Z GUARD REMEDY 2 OZ OINT TP SCH (09:17)
[2017-07-26] MEDS: BACITRACIN/POLYMYXIN B 15 GM TUBE TP SCH (09:17)
[2017-07-26] MEDS: HYDROGEL DRESSING 90 GM TUBE TP SCH (09:17)
[2017-07-26] MEDS: INSULIN GLARGINE, 100 UNIT/ML CARTRIDGE SQ SCH (09:41)
[2017-07-26] MEDS ORDERED: SODIUM POLYSTYRENE SULFONATE 15 G/60 ML BOTTLE PO ONE (18:30)
--- NOTE | 2017-07-26 19:00 | NUR ---
LABORATORY VETERINARIAN NOTES RECEIVED PATIENT WITH TRACHEOSTOMY ON THE VENTILATOR ON AC MODE,NOT IB ACUTE DISTRESS BUT BREATHING A LITTLE HARD AND DEEP,ALSO NOTED BREATHSOUNDS TO BE VERY DIMINISHED.(,RESPIRATORY THERAPHIST ABOUT TO GIVE TREATYMENT). LETHARGIC BUT AROUSABLE,OPENS EYES,NOT FOLLOWING COMMANDS,.G TUBE WITH ON GOING FEEDING,ASPIRATION PRECAUTION OBSERVED.COMFORT CARE DONE,NEEDS ATTENDED.BOTH UPPER EXTREMITIES WEEPING,GENERALYZED EDEMA 3+.
--- NOTE | 2017-07-26 21:30 | NUR ---
BRAND DESIGNER NOTES SATURATING LOW 90'S ONLY ,FIO2 INCREASE TO 40 %,NOTED IMPROVEMENT ON O2 SAT RIGHT AWAY T0 94-95%
[2017-07-26] MEDS ORDERED: VANCOMYCIN 1 GM in IV D5W 250 ML IV SCH (23:00)
[2017-07-27] VITALS (53 sets, daily range): BP systolic 79–186; BP diastolic 39–113
--- NOTE | 2017-07-27 | NUR ---
CEMENT MASON HELPER NOTES REMAINS STABLE AND CALM.PM CARE DONE,STILL WEEPING EDEMA ON BOTH UPPER EXTREMITIES,SACRAL SKIN VERY RED AND BLEEDING SKIN WHEN WIPED OFF.
[2017-07-27] MEDS: IPRATROPIUM NEB FS 0.5 MG/2.5 ML AMPUL.NEB NEB SCH ×7 (00:12→23:26)
[2017-07-27] MEDS: ALBUTEROL HALF STRENGTH 1.25 MG/3 ML VIAL.NEB NEB SCH ×7 (00:13→23:26)
[2017-07-27] MEDS: GLUCERNA 1.2 1,000 ML BOTTLE NG PRN (02:18)
[2017-07-27] MEDS: LORAZEPAM INJ 2 MG/ML VIAL IV PRN ×2 (03:54→20:47)
--- NOTE | 2017-07-27 04:00 | NUR ---
EXOTIC DANCER NOTES PATIENT HR 130'S-140'S,AFIB WITH RVR, NOTED PATIENT TO BE BREATHING A LITTLE LABORED AND DEEP ALTHOUGH [id number] IS 99%.ATIVAN 1 MG IVP GIVEN ( PRN ORDER).WILL CLOSELY MONITOR,WILL CALL MD IF RHYTHM DOES NOT BREAK/CONVERT.
--- NOTE | 2017-07-27 04:45 | NUR ---
SUPERVISOR FILM PROCESSING NOTES HEART RATE STILL SUSTAINING IN THE 140'S,MESSAGE SENT TO ON PATIENT'S CONDITION. 448. TEXTED BACK FOR ORDERS. 455 CALLED ASK ABOUT THE PATIENT AND VERIFIED HIS ORDRES.WILL START PATIEB=]NT ON METOPROLOL VIA NGT CASSI AND GIVE 1 DOSE 0.25 MG IV DIGOXIN .
[2017-07-27] MEDS ORDERED: DIGOXIN INJ 0.5 MG/2 ML AMPUL IV ONE (05:00)
[2017-07-27 05:03] LABS: EOSINOPHILS % (AUTO) 0.1 % (0.0-6.0); HEMATOCRIT 34 % (39-51); HEMOGLOBIN 11.4 g/dL (13.5-17.5); LYMPHOCYTES # (AUTO) 0.2 /CMM (0.8-4.8); LYMPHOCYTES % (AUTO) 2.3 % (20.0-44.0); MEAN CORPUSCULAR HGB CONC 34 g/dl (31.0-36.0); MEAN CORPUSCULAR VOLUME 88 fL (80-96); MONOCYTES # (AUTO) 0.3 /CMM (0.1-1.30); MONOCYTES % (AUTO) 4.1 % (2.0-12.0); NEUTROPHILS # (AUTO) 6.9 /CMM (1.8-8.9); NEUTROPHILS % (AUTO) 93.5 % (43.0-81.0); PLATELET COUNT (AUTO) 141 /CMM (150-450); RDW COEFFICIENT OF VARIATION 17.8 (11.5-15.0); RED BLOOD CELL COUNT(AUTO) 3.81 MIL/uL (4.5-6.0); WHITE BLOOD COUNT (AUTO) 7.4 K/uL (4.3-11.0)
[2017-07-27] MEDS: METOPROLOL TARTRATE 50 MG TABLET GT SCH ×3 (05:10→17:29)
[2017-07-27 05:18] LABS: CALCIUM, SERUM 8.4 mg/dL (8.5-10.1); CARBON DIOXIDE 23 mmol/L (21-32); CHLORIDE 105 mmol/L (98-107); CREATININE 4.3 mg/dL (0.6-1.3); GLUCOSE 141 mg/dL (74-106); POTASSIUM 4.5 mmol/L (3.5-5.1); SODIUM SERUM 142 mmol/L (136-145)
[2017-07-27 05:27] LABS: UREA NITROGEN, BLOOD 178 mg/dL (7-18)
[2017-07-27] MEDS: INSULIN REGULAR, HUMAN 100 UNIT/ML 10 ML VIAL SQ SCH ×4 (06:00→23:57)
--- NOTE | 2017-07-27 06:00 | NUR ---
SUPERVISOR POWDER AND PRIMER CANNING ALEX HEART RATE NOW IN THE 90'S,NOTED BREATHING TO BE MORE LABORED NOW ,O2 SATURATION IN THE LOW 90'S. BACK CARE/SKIN CARE DONE( LARGE SOFT BM).COMFORT CARE DONE 0700 REPORT GIVEN TO KOTA BEDOYA .
[2017-07-27] MEDS: BLOOD SUGAR DIAGNOSTIC 1 EACH STRIP IN SCH ×4 (06:07→23:56)
--- NOTE | 2017-07-27 08:00 | NUR ---
ICU/RN INITIAL NOTES,AM RECEIVED REPORT FROM NIGHT NURSE. PT ON VENT VIA TRACH ON SETTINGS ORDERED BY MD, NO ACUTE DISTRESS NOTED AT THIS TIME. PT SINUS ON TELE, OCCASIONALLY CONVERTS INTO A.FIB/A.FLUTTER. PT OPENS EYES, DOES NOT FOLLOW COMMANDS. REACTS TO PAINFUL STIMULI ONLY. GONZALEZ IN PLACE, MINIMAL URINE OUTPUT NOTED. RIGHT UPPER ARM PICC LINE PATENT AND INTACT, NO S/S OF INFECTION OR INFILTRATION NOTED. GTUBE FEEDING INFUSING, TOLERATING WELL, NO RESIDUAL NOTED. ALL NEEDS WILL BE ATTENDED TO, SAFETY MEASURES TAKEN, BED IN LOW POSITION, SIDE RAILS UP,CALL LIGHT WITHIN REACH.
[2017-07-27] MEDS: LEVETIRACETAM SOL (5 ML) 100 MG/ML UDC GT SCH ×2 (09:00→20:10)
[2017-07-27] MEDS: ASPIRIN 81 MG TAB.CHEW GT SCH (09:00)
[2017-07-27] MEDS: methylPREDNISolone SOD SUCC 40 MG/ML VIAL IV SCH ×3 (09:00→17:36)
[2017-07-27] MEDS: FUROSEMIDE 40 MG/4 ML VIAL IV SCH (09:00)
[2017-07-27] MEDS: HYDROGEL DRESSING 90 GM TUBE TP SCH (09:01)
[2017-07-27] MEDS: Z GUARD REMEDY 2 OZ OINT TP SCH (09:01)
[2017-07-27] MEDS: ZINC SULFATE 220 MG CAPSULE GT SCH (09:01)
[2017-07-27] MEDS: CARVEDILOL 6.25 MG TABLET GT SCH (09:01)
[2017-07-27] MEDS: MUPIROCIN OINT 2% 22 GM TUBE SCH ×2 (09:02→20:11)
[2017-07-27] MEDS: SILVER SULFADIAZINE CREAM 25 GM TUBE TP SCH (09:02)
[2017-07-27] MEDS: BACITRACIN/POLYMYXIN B 15 GM TUBE TP SCH (09:03)
[2017-07-27] MEDS: PANTOPRAZOLE 40 MG/PACK PACK GT SCH (09:06)
[2017-07-27] MEDS: INSULIN GLARGINE, 100 UNIT/ML CARTRIDGE SQ SCH (09:14)
[2017-07-27] MEDS ORDERED: MICAFUNGIN SODIUM 100 MG in IV NS 0.9% 100 ML IV SCH (10:00)
--- NOTE | 2017-07-27 11:49 | NUR ---
RT PEEP TURNED OFF PER MD
--- NOTE | 2017-07-27 12:45 | NUR ---
ICU/RN: PT CONVERTED TO A.FIB RATE IN 120-130S. NOTIFIED, NO MD ORDERS AT THIS TIME. BP MARGINAL, ORDERS TO D/C COREG RECEIVED. HOLDING TRANSFER TO [facility] AT THIS TIME. WILL CONTINUE TO MONITOR AND ASSESS
--- NOTE | 2017-07-27 15:30 | NUR ---
ICU/RN: PT FREQUENTLY CONVERTING FROM SINUS TO A.FIB/A.FLUTTER THEN BACK TO SINUS. NOTIFIED.NO NEW ORDERS
--- NOTE | 2017-07-27 18:50 | NUR ---
ICU/RN ENDING NOTES,AM REPORT WILL BE ENDORSED TO NIGHT NURSE FOR CONTINUATION OF CARE. ALL NEEDS ATTENDED TO. VSS, NO HYPOTENSION NOTED AT THIS TIME. PT CURRENTLY SINUS. SAFETY MEASURES TAKEN, BED IN LOW POSITION, SIDE RAILS UP, CALL LIGHT WITHIN REACH. BED BATH GIVEN, LINENS CHANGED. WOUND CARE DONE.
--- NOTE | 2017-07-27 20:00 | NUR ---
SEARCH ENGINE OPTIMIZATION SPECIALIST - NOTES - RECEIVED PT ON VENT VIA TRACH ON SETTINGS ORDERED BY MD, NO ACUTE DISTRESS NOTED AT THIS TIME. PT SINUS ON TELE, OCCASIONALLY CONVERTS INTO A.FIB/A.FLUTTER. PT OPENS EYES, DOES NOT FOLLOW COMMANDS. REACTS TO PAINFUL STIMULI ONLY. GONZALEZ IN PLACE, MINIMAL URINE OUTPUT NOTED. RIGHT UPPER ARM PICC LINE PATENT AND INTACT, NO S/S OF INFECTION OR INFILTRATION NOTED. GTUBE FEEDING INFUSING, TOLERATING WELL, NO RESIDUAL NOTED. ALL NEEDS WILL BE ATTENDED TO, SAFETY MEASURES TAKEN, BED IN LOW POSITION, SIDE RAILS UP,CALL LIGHT WITHIN REACH.
--- NOTE | 2017-07-27 20:11 | NUR ---
PT RECEIVED TRACHED COOK 8 ON VENT. NO RESP DISTRESS NOTED. PT TOLERATING VENT SETTINGS. SX'D FOR MOD AMT OF THICK YELLOW SECRETIONS. VENT ALARMS SET AND AUDIBLE. AMBU BAG AT BEDSIDE. VENT PLUGGED INTO RED OUTLET. WILL CONTINUE TO MONITOR. Addendum: 07/27/17 at 2011 by ANTHONY JALLOH RT Amended: Links added.
[2017-07-28] VITALS (60 sets, daily range): BP systolic 79–166; BP diastolic 50–104
[2017-07-28] MEDS: ALBUTEROL HALF STRENGTH 1.25 MG/3 ML VIAL.NEB NEB SCH ×6 (03:10→23:32)
[2017-07-28] MEDS: IPRATROPIUM NEB FS 0.5 MG/2.5 ML AMPUL.NEB NEB SCH ×6 (03:10→23:32)
[2017-07-28] MEDS: INSULIN REGULAR, HUMAN 100 UNIT/ML 10 ML VIAL SQ SCH ×3 (06:00→17:54)
[2017-07-28] MEDS: BLOOD SUGAR DIAGNOSTIC 1 EACH STRIP IN SCH ×3 (06:15→17:53)
[2017-07-28] MEDS: GLUCERNA 1.2 1,000 ML BOTTLE NG PRN (06:53)
--- NOTE | 2017-07-28 08:01 | NUR ---
INITIAL RADIO DESPATCHER NOTE RCVD PT ABLE TO OPEN EYES, NOT FOLLOWING COMMANDS, PUPILS UNEQUAL, SR ON TELE. TOLERATING ORDERED VENT SETTINGS. PEG PLACEMENT VERIFIED BY AUSCULTATION/ASPIRATION. NO RESIDUAL OBTAINED. GONZALEZ TO GRAVITY DRAINING CLOUDY, YELLOW URINE. IV ACCESSES C/D/I/PATENT. NO S/O INFILTRATION/PHLEBITIS OBSERVED UPON FLUSHING. WILL CONTINUE TO MONITOR PT FOR SAFETY AND COMFORT. BED IN LOW AND LOCKED POSITION.
[2017-07-28] MEDS: LEVETIRACETAM SOL (5 ML) 100 MG/ML UDC GT SCH ×2 (09:08→21:15)
[2017-07-28] MEDS: ZINC SULFATE 220 MG CAPSULE GT SCH (09:08)
[2017-07-28] MEDS: methylPREDNISolone SOD SUCC 40 MG/ML VIAL IV SCH ×3 (09:08→17:53)
[2017-07-28] MEDS: METOPROLOL TARTRATE 50 MG TABLET GT SCH ×2 (09:08→17:53)
[2017-07-28] MEDS: PANTOPRAZOLE 40 MG/PACK PACK GT SCH (09:08)
[2017-07-28] MEDS: ASPIRIN 81 MG TAB.CHEW GT SCH (09:08)
[2017-07-28] MEDS: FUROSEMIDE 40 MG/4 ML VIAL IV SCH (09:08)
[2017-07-28] MEDS: INSULIN GLARGINE, 100 UNIT/ML CARTRIDGE SQ SCH (09:26)
[2017-07-28] MEDS: BACITRACIN/POLYMYXIN B 15 GM TUBE TP SCH (09:27)
[2017-07-28] MEDS: MUPIROCIN OINT 2% 22 GM TUBE SCH ×2 (09:28→21:16)
[2017-07-28] MEDS: SILVER SULFADIAZINE CREAM 25 GM TUBE TP SCH (09:28)
[2017-07-28] MEDS: Z GUARD REMEDY 2 OZ OINT TP SCH (09:29)
[2017-07-28] MEDS: HYDROGEL DRESSING 90 GM TUBE TP SCH (09:29)
[2017-07-28] MEDS ORDERED: hydrALAZINE HCL IV 20 MG VIAL IV ONE (10:00)
--- NOTE | 2017-07-28 10:13 | NUR ---
COFFEE MACHINE TECHNICIAN NOTE PT'S DPOAJAKE IN UNIT SPOKE WITH DR. TERRY AND DR. EWING REGARDING PT'S PROGNOSIS AND PLAN OF CARE. SHE CALLED PT'S COUSIN WHO WILL COME ON FRIDAY AND THEY'LL MAKE A DECISION REGARDING COMFORT CARE AT THAT TIME. IN THE MEANTIME PT'S CODE STATUS CHANGED TO DNR.
[2017-07-28] MEDS: DEXTROSE 50%-WATER 50 ML DISP.SYRIN IV PRN (17:54)
--- NOTE | 2017-07-28 18:15 | NUR ---
DRYING OVEN TENDER NOTE ADAM COLLIER STARTED PT'S RECTAL TEMP 94.4 UNABLE TO GET ORAL TEMP. BLOOD GLUCOSE 47 D50% GIVEN ORDERED. BLOOD GLUCOSE RE-CHECKED 180. PT'S CARE WILL BE ENDORSED TO CLAIMS ADJUSTER RN FOR CONTINUITY OF CARE. BED IN LOW AND LOCKED POSITION. CALL LIGHT WITHIN REACH.
--- NOTE | 2017-07-28 20:00 | NUR ---
COMPUTER HARDWARE TECHNICIAN - NOTES - RECEIVED PT ABLE TO OPEN EYES, NOT FOLLOWING COMMANDS, PUPILS UNEQUAL, SR ON TELE. TOLERATING ORDERED VENT SETTINGS. PEG PLACEMENT VERIFIED BY AUSCULTATION/ASPIRATION. NO RESIDUAL OBTAINED. GONZALEZ TO GRAVITY DRAINING MINIMAL CLOUDY, YELLOW URINE. IV ACCESSES C/D/I/PATENT. NO S/O INFILTRATION/PHLEBITIS OBSERVED UPON FLUSHING. WILL CONTINUE TO MONITOR PT FOR SAFETY AND COMFORT. BED IN LOW AND LOCKED POSITION.
[2017-07-29] VITALS (33 sets, daily range): BP systolic 67–112; BP diastolic 17–75
[2017-07-29] MEDS: DEXTROSE 50%-WATER 50 ML DISP.SYRIN IV PRN ×2 (00:16→09:37)
[2017-07-29] MEDS: BLOOD SUGAR DIAGNOSTIC 1 EACH STRIP IN SCH ×3 (00:16→11:48)
--- NOTE | 2017-07-29 01:00 | NUR ---
BLOOD SUGAR WAS 25, D50 GIVEN, AND RECHECKED, BLOOD SUGAR STILL ONLY 65, SOME ORANGE JUICE WAS GIVEN, BLOOD SUGAR INCREASED TO 99
[2017-07-29] MEDS: ALBUTEROL HALF STRENGTH 1.25 MG/3 ML VIAL.NEB NEB SCH ×3 (04:08→11:26)
[2017-07-29] MEDS: IPRATROPIUM NEB FS 0.5 MG/2.5 ML AMPUL.NEB NEB SCH ×3 (04:08→11:26)
[2017-07-29] MEDS: INSULIN REGULAR, HUMAN 100 UNIT/ML 10 ML VIAL SQ SCH ×3 (05:35→12:00)
[2017-07-29] MEDS: GLUCERNA 1.2 1,000 ML BOTTLE NG PRN (06:59)
--- NOTE | 2017-07-29 07:30 | NUR ---
FINAL RAIL CUTTER NOTES RECEIVED PT IN BED OBTUNDED, TRACHE MIDLINE [facility] SETTINGS PRESCRIBED. NOTED WITH AGONAL BREATHING,SUCTIONED FOR AIRWAY CLEARANCE WITH MODERATE TO LARGE AMOUNT F SECRETIONS. SR ON PREP COOK, PT HYPOTENSIVE SBP ON 80'S MD AWARE. ONGOING GTF GLUCERNA 1.2@50ML/HR, NO RESIDUAL OBTAINED. GONZALEZ TO GRAVITY DNO OUTPUT NOTED. IV ACCESSES C/D/I/PATENT. NO S/O INFILTRATION/PHLEBITIS OBSERVED UPON FLUSHING. NOTED WITH DISCOLORATION ON BUE. ISOLATION PRECAUTION OBSERVED, WILL CONTINUE TO MONITOR PT FOR SAFETY AND COMFORT. BED IN LOW AND LOCKED POSITION.
[2017-07-29] MEDS: LEVETIRACETAM SOL (5 ML) 100 MG/ML UDC GT SCH (08:41)
[2017-07-29] MEDS: ZINC SULFATE 220 MG CAPSULE GT SCH (08:41)
[2017-07-29] MEDS: methylPREDNISolone SOD SUCC 40 MG/ML VIAL IV SCH (08:41)
[2017-07-29] MEDS: PANTOPRAZOLE 40 MG/PACK PACK GT SCH (08:41)
[2017-07-29] MEDS: ASPIRIN 81 MG TAB.CHEW GT SCH (08:41)
[2017-07-29] MEDS: Z GUARD REMEDY 2 OZ OINT TP SCH (08:42)
[2017-07-29] MEDS: METOPROLOL TARTRATE 50 MG TABLET GT SCH (08:55)
--- NOTE | 2017-07-29 08:55 | NUR ---
RN NOTES PT NOTED SBP 60'S. BS 53MG/DL D50 GIVEN. PT NOTED WITH AGONAL BREATHING. FIO2 INCREASED TO 80%. DR TERRY PAGED AWAITING FOR RESPONSE
[2017-07-29] MEDS: HYDROGEL DRESSING 90 GM TUBE TP SCH (08:56)
[2017-07-29] MEDS: MUPIROCIN OINT 2% 22 GM TUBE SCH (08:56)
[2017-07-29] MEDS: INSULIN GLARGINE, 100 UNIT/ML CARTRIDGE SQ SCH (08:57)
[2017-07-29] MEDS: BACITRACIN/POLYMYXIN B 15 GM TUBE TP SCH (08:57)
[2017-07-29] MEDS: SILVER SULFADIAZINE CREAM 25 GM TUBE TP SCH (08:58)
[2017-07-29] MEDS: FUROSEMIDE 40 MG/4 ML VIAL IV SCH (09:46)
--- NOTE | 2017-07-29 11:30 | NUR ---
FIO2 INCREASED FROM 60% TO 100% DUE TO SATURATION OF 80'S. Addendum: 07/29/17 at 1130 by ELIAS JAMIL RT Amended: Links added.
[2017-07-29] MEDS ORDERED: NOREPINEPHRINE 16 MG in IV D5W 500 ML IV PRN ×4 (12:00)
[2017-07-29] MEDS ORDERED: methylPREDNISolone SOD SUCC 40 MG/ML VIAL IV SCH (13:00)
--- NOTE | 2017-07-29 15:24 | NUR ---
RN NOTES PT NOTED PEA ON MONITOR. PUPIL FIXED AND DILATED. NO PERIPHERAL PULSES PALPABLE, BP UNAPPRECIATED. DR EWING AT BEDSIDE AND PRONOUNCED PT .
--- NOTE | 2017-07-29 15:26 | NUR ---
. Addendum: 07/29/17 at 1526 by ELIAS JAMIL RT Amended: Links added.
--- NOTE | 2017-07-29 15:50 | NUR ---
RN NOTES POST MORTEM CARE RENDERED. CHARGE NURSE NOTIFIED ARLEEN JOSEPH REGARDING PT AT 1524 TODAY, PER JAKE NO MORTUARY ARRANGEMENTS. DRAWING CHECKER NOTIFIED. [employer] CALLED CONFIRMATION NUMBER [id number].
--- NOTE | 2017-07-29 16:15 | NUR ---
RN NOTES PATIENT REMAINS SENT TO [facility] ACCOMPANIED BY SECURITY STAFF X2 AND RN. PT CHART GIVEN TO DYLAN GEOSPATIAL IMAGE ANALYST
[2017-07-30] MEDS ORDERED: INSULIN GLARGINE, 100 UNIT/ML CARTRIDGE SQ SCH (09:00)
== END 2017-07-29 15:24 | disposition expired | DRG 207 ==
LOC: ER 18:53 → ICU 21:07
PROVIDERS: ADMIT Internal Medicine; ATTEND Internal Medicine
PROC: 5A1955Z Respiratory Ventilation, Greater than 96 Consecutive Hours (ICD-10-PCS; principal; 2017-07-24)
PROC: 02HV33Z Insertion of Infusion Device into Superior Vena Cava, Percutaneous Approach (ICD-10-PCS; 2017-07-25)
PROC: B548ZZA Ultrasonography of Superior Vena Cava, Guidance (ICD-10-PCS; 2017-07-25)
PROC: 30233N1 Transfusion of Nonautologous Red Blood Cells into Peripheral Vein, Percutaneous Approach (ICD-10-PCS; 2017-07-25)
DX: J96.21 Acute and chronic respiratory failure with hypoxia (principal); G93.1 Anoxic brain damage, not elsewhere classified; I50.33 Acute on chronic diastolic (congestive) heart failure; J18.9 Pneumonia, unspecified organism; J90 Pleural effusion, not elsewhere classified; E87.2 Acidosis; D69.6 Thrombocytopenia, unspecified; E11.22 Type 2 diabetes mellitus with diabetic chronic kidney disease; K92.2 Gastrointestinal hemorrhage, unspecified; I13.0 Hypertensive heart and chronic kidney disease with heart failure and stage 1 through stage 4 chronic kidney disease, or unspecified chronic kidney disease; Z99.11 Dependence on respirator [ventilator] status; J44.0 Chronic obstructive pulmonary disease with (acute) lower respiratory infection; J44.1 Chronic obstructive pulmonary disease with (acute) exacerbation; I95.9 Hypotension, unspecified; Z93.0 Tracheostomy status; J96.22 Acute and chronic respiratory failure with hypercapnia; E88.09 Other disorders of plasma-protein metabolism, not elsewhere classified; D64.9 Anemia, unspecified; Z93.1 Gastrostomy status; E78.5 Hyperlipidemia, unspecified; I25.10 Atherosclerotic heart disease of native coronary artery without angina pectoris; K21.9 Gastro-esophageal reflux disease without esophagitis; Z87.891 Personal history of nicotine dependence; Z95.1 Presence of aortocoronary bypass graft; N18.9 Chronic kidney disease, unspecified; R33.9 Retention of urine, unspecified; I25.2 Old myocardial infarction; Z79.4 Long term (current) use of insulin; E86.1 Hypovolemia; I48.91 Unspecified atrial fibrillation; Z86.74 Personal history of sudden cardiac arrest
CPT/HCPCS: 31720; 36415; 36569; 36600; 71045-TC; 76942-TC; 80048-TC; 80053-TC; 80076-TC; 80202-TC; 81000-TC; 82803-TC; 82962-TC; 83605-TC; 84484-TC; 85025-TC; 85730-TC; 86850-TC; 86921-TC; 87040-TC; 87081-TC; 87086-TC; 93307-TC; 93970-TC; 94002-TC; 94003-TC; 94762-TC; 99082-TC; A4606; A6248; A6402; A6403; C1751; J1160; J1815; J1940; J1953; J2060; J2185; J2248; J2920; J3370; J3490; J7030; J7040; J7060; P9016-BL; Z7610